=== PATIENT | male | born 1955 | race Caucasian/White ===

== ENCOUNTER 2017-11-07 06:53 | Outpatient (CLI) | payer BC | END 2017-11-07 06:54 | disposition home or self-care (01) | LOC: BICULT 06:53 | PROVIDERS: ATTEND Internal Medicine Gastroenterology | DX: Z12.11 Encounter for screening for malignant neoplasm of colon (principal); B18.2 Chronic viral hepatitis C; K74.60 Unspecified cirrhosis of liver; R16.0 Hepatomegaly, not elsewhere classified; I81 Portal vein thrombosis; I82.0 Budd-Chiari syndrome | CPT/HCPCS: 76705 ==

== ENCOUNTER 2017-11-15 10:13 | Outpatient (CLI) | payer BC, OTHER ==
[2017-11-15] MEDS ORDERED: ISOVUE-370 76%-LOCM 1 ML ONE (11:12)
== END 2017-11-15 10:14 | disposition home or self-care (01) ==
LOC: BICCT 10:13
PROVIDERS: ATTEND Specialist
DX: R16.2 Hepatomegaly with splenomegaly, not elsewhere classified (principal)
CPT/HCPCS: 74170; 82565

== ENCOUNTER 2018-02-27 11:16 | Outpatient (CLI) | payer BC, OTHER ==
[2018-02-27 11:46] LABS: #Basophils 0.1 thou/uL (0.0-0.2); #Eosinphils 0.1 thou/uL (0.0-0.7); #Lymphocytes 1.2 thou/uL (1.20-3.40); #Monocytes 0.4 thou/uL (0.11-0.59); #Neutrophils 2.5 thou/uL (1.40-6.50); %Basophils 1.6 % (0.0-1.0); %Eosinophils 2.9 % (0.0-10.0); %Lymphocytes 27.6 % (21.0-51.0); %Monocytes 9.6 % (0.0-10.0); %Neutrophils 58.3 % (42.0-75.0); Hemoglobin 11.9 g/dL (14.0-18.0); Mean Corpuscular HGB CONC 32.3 g/dL (32.0-36.0); Mean Corpuscular Hemoglobin 30.6 pg (27.0-31.0); Mean Corpuscular Volume 94.9 fL (78.0-98.0); Mean Platelet Volume 8.2 fL (7.4-10.4); Platelet Count 199 thou/uL (130-400); RBC Distribution Width 14.4 % (11.5-14.5); Red Blood Cell (RBC) Count 3.87 mill/uL (4.70-6.10); White Blood Cell (WBC) Count 4.3 thou/uL (4.8-10.8)
[2018-02-27 12:03] LABS: Anion Gap 11 mmol/L (10-20); BUN (Urea Nitrogen) 13 mg/dL (8.4-25.7); Calc. Creatinine Clearance 0 mL/min (70-130); Calcium 8.8 mg/dL (7.8-10.44); Carbon Dioxide 29 mmol/L (23-31); Chloride 98 mmol/L (98-107); Estimated GFR-MDRD 70; Glucose 88 mg/dL (80-115); Potassium 4.3 mmol/L (3.5-5.1); Sodium 134 mmol/L (136-145)
--- NOTE | 2018-02-27 15:02 | EKG ---
Test Reason : Blood Pressure : / mmHG Vent. Rate : 080 BPM Atrial Rate : 080 BPM P-R Int : 190 ms QRS Dur : 082 ms QT Int : 360 ms P-R-T Axes : 069 072 050 degrees QTc Int : 415 ms Normal sinus rhythm Cannot rule out Anterior infarct , age undetermined Abnormal ECG When compared with ECG of 22-JUN-2015 10:56, Minimal criteria for Anterior infarct are now Present Confirmed by DR. Octavio LEMUS ([id number]) on 02/27/2018 3:02:27 PM Referred By: GUERRERO Confirmed By:DR. Octavio LEMUS
== END 2018-02-27 11:17 | disposition home or self-care (01) ==
LOC: LABBT 11:16
PROVIDERS: ATTEND Specialist
DX: Z01.818 Encounter for other preprocedural examination (principal); K40.20 Bilateral inguinal hernia, without obstruction or gangrene, not specified as recurrent
CPT/HCPCS: 80048; 85025; 93005; 93010

== ENCOUNTER 2018-03-06 10:51 | Day surgery (SDC) | payer BC, OTHER ==
[2018-02-27 11:30] VITALS: BMI 27.1
[2018-03-06] MEDS ORDERED: CEFAZOLIN 2 GM/50 ML BAG ONE (12:05)
[2018-03-06] MEDS ORDERED: Ketorolac Tromethamine 30 MG/ML VIAL ONE (12:05)
[2018-03-06] MEDS ORDERED: Bupivacaine/Epinephrine 0.25% 30 ML VIAL ONE (13:09)
[2018-03-06] MEDS ORDERED: Fentanyl 100 MCG/2 ML VIAL ONE (13:13)
[2018-03-06] MEDS ORDERED: Albumin 5% 500 ML ONE (13:31)
[2018-03-06] MEDS ORDERED: Lidocaine 1% PF 5 ML VIAL ONE (14:38)
[2018-03-06] MEDS ORDERED: PHENYLEPHRINE-NS 100 MCG/ML 10 ML SYRINGE ONE (14:38)
[2018-03-06] MEDS ORDERED: PROPOFOL 200 MG/20 ML VIAL ONE (14:38)
[2018-03-06] MEDS ORDERED: Succinylcholine Chloride 20 MG/ML 10 ml SYRINGE FS ONE (14:38)
[2018-03-06] MEDS ORDERED: Dexamethasone 20 MG/5 ML VIAL ONE (14:38)
[2018-03-06] MEDS ORDERED: Ondansetron PF 4 MG/2 ML Vial ONE (14:38)
[2018-03-06] MEDS ORDERED: ePHEDrine/0.9% NaCl/PF SYRINGE 50 mg/10 ml ONE (14:38)
[2018-03-06 16:13] LABS: INR-International Normal Ratio 1.1; PTT 33.7 SEC (22.9-36.1); Prothrombin Time 14.6 SEC (12.0-14.7)
--- NOTE | 2018-03-07 12:55 | OP ---
DATE OF PROCEDURE: 03/06/2018 PREOPERATIVE DIAGNOSES: Bilateral inguinal hernia, history of cirrhosis with massive hepatomegaly. POSTOPERATIVE DIAGNOSES: Bilateral inguinal hernia, history of cirrhosis with massive hepatomegaly. PROCEDURE PERFORMED: Open bilateral inguinal hernia repair with mesh using a mesh patch and plug. SURGEON: Sunil Cervantes M.D. ANESTHESIA: General endotracheal. INDICATIONS: The patient is a 62-year-old white male. He presented with a significantly enlarging r ight inguinal hernia. On examination, he also had evidence of a left inguinal hernia repaired. He h ad significant hepatomegaly palpable well below his costal margin and for this reason, I recommended proceeding with an open rather than a laparoscopic hernia repair. He has some degree of ascites, but this is not felt to be a significant volume related problem. DESCRIPTION OF PROCEDURE: Informed consent was obtained. The patient was taken to the operating franny m where general endotracheal anesthesia was obtained with the patient in supine position. Bilateral inguinal area was trimmed of hair, prepped with ChloraPrep, and draped in sterile fashion. Local ane sthetic was infiltrated using 0.25% Marcaine with epinephrine. Attention was first turned to the rig ht side. An oblique right inguinal incision was created and dissection was carried through skin and subcutaneous tissue. The fascia was identified and incised parallel to its fibers so as to open the external ring. Careful dissection was carried out to dissect the spermatic cord and controlled this with a Tyrone drain. Dissection within the cord revealed a significant hernia sac. This does have some fluid within it. I carefully dissected this from the remaining cord structures. The cord struc tures had a general edematous appearance in texture. Meticulous hemostasis was maintained during the dissection. The sac was dissected back to its opening at the internal ring. A 2-0 Vicryl suture wa s used to fix a large mesh plug to the apex of the hernia sac and the complex was inverted in the pre peritoneal space. The mesh plug was secured to surrounding fascial structures with 3 interrupted sut ures of 2-0 Vicryl. A mesh patch was obtained and trimmed to appropriate size, and placed within the floor of the inguinal canal. It was secured there with several interrupted sutures of 2-0 Vicryl. The fascia was then closed with 3-0 Vicryl and the remainder of the wound closed in layers with 3-0 a nd 4-0 Monocryl. Dermabond was placed externally. Attention was turned to the left side. A mirror image incision and dissection was carried out. Ther e was a very large cord lipoma on the left. There have been a small cord lipoma on the right that maier d been removed, but the cord lipoma on the left was a fairly big. This was dissected back to its ope vadim at the internal ring and transected and removed. There was an indirect hernia sac, but this is substantially smaller than on the right. This was repaired in an identical fashion except using a me dium size mesh plug rather than a large mesh plug. The wound was clean and closed in a similar fashi on. Local anesthetic was infiltrated in each side during the course of closure and Dermabond was titus leticia externally. There were no complications. Patient tolerated the procedure well and was taken to recovery room in stable condition.
== END 2018-03-06 17:45 | disposition home or self-care (01) ==
LOC: SDC 10:51
PROVIDERS: ATTEND Specialist
PROC: 0YUA0JZ Supplement Bilateral Inguinal Region with Synthetic Substitute, Open Approach (ICD-10-PCS; principal; 2018-03-06)
DX: K40.20 Bilateral inguinal hernia, without obstruction or gangrene, not specified as recurrent (principal); K74.60 Unspecified cirrhosis of liver; Z79.899 Other long term (current) drug therapy
CPT/HCPCS: 85610; 85730; C1781; J0131; J1100; J1885; J2001; J2405; J2704; J3010; P9045

== ENCOUNTER 2018-03-21 11:10 | Outpatient (CLI) | payer BC, OTHER ==
[2018-03-21 12:13] LABS: #Basophils 0.1 thou/uL (0.0-0.2); #Eosinphils 0.1 thou/uL (0.0-0.7); #Monocytes 0.4 thou/uL (0.11-0.59); #Neutrophils 3.5 thou/uL (1.40-6.50); %Basophils 1.2 % (0.0-1.0); %Eosinophils 2.7 % (0.0-10.0); %Lymphocytes 19.6 % (21.0-51.0); %Monocytes 7.2 % (0.0-10.0); %Neutrophils 69.3 % (42.0-75.0); Hemoglobin 10.8 g/dL (14.0-18.0); Mean Corpuscular HGB CONC 31.7 g/dL (32.0-36.0); Mean Corpuscular Hemoglobin 29.8 pg (27.0-31.0); Mean Corpuscular Volume 94.3 fL (78.0-98.0); Mean Platelet Volume 7.7 fL (7.4-10.4); Platelet Count 283 thou/uL (130-400); RBC Distribution Width 15.3 % (11.5-14.5); Red Blood Cell (RBC) Count 3.63 mill/uL (4.70-6.10)
[2018-03-21 12:31] LABS: ALT (SGPT) 60 U/L (8-55); AST (SGOT) 99 U/L (5-34); Albumin 3.4 g/dL (3.4-4.8); Alkaline Phosphatase 714 U/L (40-150); Anion Gap 11 mmol/L (10-20); BUN (Urea Nitrogen) 14 mg/dL (8.4-25.7); Bilirubin, Total 0.6 mg/dL (0.2-1.2); Calc. Creatinine Clearance 0 mL/min (70-130); Carbon Dioxide 26 mmol/L (23-31); Chloride 100 mmol/L (98-107); Estimated GFR-MDRD 72; Globulin 4.1 g/dL (2.4-3.5); Glucose 106 mg/dL (80-115); Potassium 4.4 mmol/L (3.5-5.1); Protein, Total 7.5 g/dL (5.8-8.1); Sodium 133 mmol/L (136-145)
== END 2018-03-21 11:11 | disposition home or self-care (01) ==
LOC: LABBT 11:10
PROVIDERS: ATTEND Specialist
DX: Z01.812 Encounter for preprocedural laboratory examination (principal); K43.9 Ventral hernia without obstruction or gangrene
CPT/HCPCS: 80053; 85025

== ENCOUNTER 2018-03-27 05:57 | Day surgery (SDC) | payer BC, OTHER ==
[2018-03-21 11:19] VITALS: BMI 27.1
[2018-03-27] MEDS ORDERED: CEFAZOLIN 2 GM/50 ML BAG ONE (06:11)
[2018-03-27] MEDS ORDERED: Ketorolac Tromethamine 30 MG/ML VIAL ONE (06:12)
[2018-03-27] MEDS ORDERED: Fentanyl 100 MCG/2 ML VIAL ONE ×2 (06:37→07:22)
[2018-03-27] MEDS ORDERED: Bupivacaine/Epinephrine 0.25% 30 ML VIAL ONE (06:54)
[2018-03-27] MEDS ORDERED: HYDROcodone/Acetaminophen 5/325 mg Tablet ONE (10:03)
--- NOTE | 2018-03-27 17:21 | OP ---
DATE OF PROCEDURE: 03/27/2018 PREOPERATIVE DIAGNOSIS: Ventral hernia. POSTOPERATIVE DIAGNOSIS: Ventral hernia. PROCEDURE PERFORMED: Repair of ventral abdominal hernia with mesh using 4.3-cm Ventralex mesh patch. ANESTHESIA: General endotracheal. INDICATIONS: The patient is a 62-year-old cirrhotic white male. He recently underwent bilateral inguinal hernia repair. He has developed an enlarging epigastric mass with obvious hernia. He was taken to the operating room at this time for repair. DESCRIPTION OF OPERATION: Informed consent was obtained. The patient was taken to the operating room, where general anesthesia was obtained with the patient in supine position. Abdomen was prepped with ChloraPrep and draped in sterile fashion. Local anesthetic was infiltrated using 0.25% Marcaine with epinephrine. A vertical incision was created over the hernia that was marked in the preoperative area. Dissection was carried down to the obvious hernia. This was dissected circumferentially back to its base. The defect was about 1 cm in diameter. The hernia attachments were dissected circumferentially and the contents were able to be reduced intraabdominal. Blunt dissection was carried out to mobilize the preperitoneal space. A 4.3-cm Ventralex mesh patch was obtained and passed in the preperitoneal space. The tails were pulled snugly against the anterior abdominal wall. The tails were secured to the anterior fascia using 2 interrupted sutures of 0 Prolene superior and inferior. The lateral aspects were then closed with 2 additional sutures of 0 Prolene, obtaining bites of the anterior leaflet of the mesh patch. Additional local anesthetic was infiltrated. The deep layer was closed in layers with 3-0 Vicryl, so as to obliterate the space. The skin edges were approximated with 4-0 Monocryl subcuticular suture. Dermabond was placed externally. There were no complications. The patient tolerated the procedure well and was taken to recovery room in stable condition. Of note, care was taken to avoid entry into the peritoneal cavity. There was no ascitic fluid that was expressed at any point during the operation. Job ID: [id number]
== END 2018-03-27 10:18 | disposition home or self-care (01) ==
LOC: SDC 05:57
PROVIDERS: ATTEND Specialist
PROC: 0WUF0JZ Supplement Abdominal Wall with Synthetic Substitute, Open Approach (ICD-10-PCS; principal; 2018-03-27)
DX: K43.9 Ventral hernia without obstruction or gangrene (principal); M19.90 Unspecified osteoarthritis, unspecified site; K74.60 Unspecified cirrhosis of liver; F17.210 Nicotine dependence, cigarettes, uncomplicated; F10.20 Alcohol dependence, uncomplicated; Z79.899 Other long term (current) drug therapy; Z98.890 Other specified postprocedural states
CPT/HCPCS: J0131; J1885; J3010

== ENCOUNTER 2018-04-09 12:47 | Inpatient (IN) | payer BC, OTHER ==
[2018-04-09 13:13] LABS: #Basophils 0.1 thou/uL (0.0-0.2); #Eosinphils 0.1 thou/uL (0.0-0.7); #Lymphocytes 1.7 thou/uL (1.20-3.40); #Monocytes 1.1 thou/uL (0.11-0.59); #Neutrophils 11.6 thou/uL (1.40-6.50); %Basophils 0.7 % (0.0-1.0); %Eosinophils 0.5 % (0.0-10.0); %Lymphocytes 11.6 % (21.0-51.0); %Monocytes 7.6 % (0.0-10.0); %Neutrophils 79.6 % (42.0-75.0); Hemoglobin 7.4 g/dL (14.0-18.0); Mean Corpuscular HGB CONC 32.9 g/dL (32.0-36.0); Mean Corpuscular Hemoglobin 30.9 pg (27.0-31.0); Mean Corpuscular Volume 93.8 fL (78.0-98.0); Mean Platelet Volume 7.9 fL (7.4-10.4); Platelet Count 549 thou/uL (130-400); White Blood Cell (WBC) Count 14.5 thou/uL (4.8-10.8)
[2018-04-09 13:22] LABS: INR-International Normal Ratio 1.1; PTT 32.8 SEC (22.9-36.1); Prothrombin Time 13.9 SEC (12.0-14.7)
[2018-04-09] MEDS ORDERED: Pantoprazole 40 MG VIAL ONE (13:36)
[2018-04-09 13:38] LABS: ALT (SGPT) 166 U/L (8-55); AST (SGOT) 213 U/L (5-34); Albumin 3.2 g/dL (3.4-4.8); Alkaline Phosphatase 642 U/L (40-150); BUN (Urea Nitrogen) 74 mg/dL (8.4-25.7); Bilirubin, Total 0.5 mg/dL (0.2-1.2); Calc. Creatinine Clearance 0 mL/min (70-130); Carbon Dioxide 20 mmol/L (23-31); Chloride 100 mmol/L (98-107); Estimated GFR-MDRD 66; Globulin 3.7 g/dL (2.4-3.5); Glucose 157 mg/dL (80-115); Lipase 16 U/L (8-78); Potassium 5.9 mmol/L (3.5-5.1); Protein, Total 6.9 g/dL (5.8-8.1); Sodium 131 mmol/L (136-145)
[2018-04-09 13:42] LABS: Anion Gap 17 mmol/L (10-20)
[2018-04-09] MEDS ORDERED: Pantoprazole 80 MG in Sodium Chloride 0.9% 100 ML IVPB SCH (13:45)
[2018-04-09] MEDS ORDERED: Ondansetron PF 4 MG/2 ML Vial ONE (14:16)
[2018-04-09] MEDS ORDERED: Morphine 4 MG/ML VIAL ONE (14:16)
[2018-04-09] MEDS ORDERED: ISOVUE-370 76%-LOCM 1 ML ONE (15:53)
[2018-04-09] MEDS ORDERED: Iopamidol 370 76% 50 ML VIAL FS ONE (15:53)
[2018-04-09 16:33] LABS: Bilirubin Negative (Negative); Blood, Urine Negative (Negative); Clarity CLEAR (Clear); Glucose, Urine (Dipstick) Negative (Negative); Leukocyte Negative (Negative); Nitrite Negative (Negative); Protein, Urine (Dipstick) Negative (Neg-Trace); Specific Gravity, Urine 1.034 (1.002-1.036); Urobilinogen 0.2 mg/dL (0.2-1.0); pH, Urine 5.5 (5.0-9.0)
--- NOTE | 2018-04-09 16:53 | CT ---
CT ABDOMEN AND PELVIS WITH IV AND ORAL CONTRAST: History: Recent surgery, abdominal pain, rectal bleeding, hepatitis C, cirrhosis. FINDINGS: Comparison made with exam of 12-05-17. The AP diameter of left nodule is stable. Changes of cirrhosis of the liver are again seen. Numerous low density masses are seen in the liver, the largest measuring about 9.5 x 5 cm in the inferior aspe ct of the right lobe. There is free fluid in the abdomen consistent with mild ascites. The spleen is enlarged measuring 14.5 cm in length. Enlarged portahepatis lymph node is noted. The pancreas, adrena l glands, and kidneys are unremarkable. No free air is seen. There are vascular calcifications withou t evidence of aneurysmal dilatation of the abdominal aorta. The small bowel loops are not abnormally dilated. There is sigmoid diverticulosis. There is thickening of the wall of the sigmoid colon. There are degenerative changes of the spine. There are vascular calcifications without evidence of aneurys m. Gallbladder is again seen. IMPRESSION: 1. Cirrhosis of the liver with new masses, suspicious for hepatocellular carcinoma. Correlation with serum AFP level is recommended. 2. Sigmoid diverticulosis with diverticulitis. Underlying mass cannot be excluded. 3. Colonoscopy would be helpful. 4. Mild ascites. 5. Splenomegaly. POS: [facility]
[2018-04-09] MEDS ORDERED: metroNIDAZOLE 500 MG/100 ML BAG ONE (18:43)
[2018-04-09] MEDS ORDERED: Octreotide Acetate 100 MCG/ML VIAL SLOW IVP SCH (20:15)
[2018-04-09] MEDS ORDERED: Octreotide Acetate 1,250 MCG in Sodium Chloride 0.9% 250 ML 250 ML IVPB SCH (20:15)
[2018-04-09 20:26] LABS: Hemoglobin 7.8 g/dL (14.0-18.0)
[2018-04-09] MEDS: Nicotine 14 MG PATCH TOP SCH (20:37)
[2018-04-09] MEDS: Sodium Chloride 0.9% 1,000 ML IV SCH (20:41)
--- NOTE | 2018-04-09 21:08 | CON ---
DATE OF CONSULTATION: REASON FOR CONSULT: Hematemesis. HISTORY OF PRESENT ILLNESS: Mr. Carmen is a 62-year-old male who has been seen in our office intermittently for hepatitis C and cirrhosis. Earlier this fall in January, he was treated for hepatitis C. He reports that his levels were negative at the end of treatment. He has not been back since. At that time, he was evaluated with ultrasound, AFP for hepatoma screening. On ultrasound, there was initially concern for possible liver mass. However, a CT scan, three phase after that showed none and his AFP was 10. He was scheduled to have an MRI upcoming to follow up on that on the of this month for a 4-month followup. His significant other called me this morning noting since the , he has been throwing up coffee-ground materials and having black stools. She thought maybe it would go away and did not come in, but he has gained weight, so they called and I instructed them to come to the emergency room today. In the emergency room, he was evaluated, reported as afebrile, stable vital signs, looked pale. He had labs performed, which showed hemoglobin of 7.4 and a white count of 14.5, platelets were 549. INR is 1.1. Liver function tests note for an AST and ALT of 213 and 166 and alkaline phosphatase of 642, potassium is 5.9, sodium is 131, BUN and creatinine were 74 and 1.12. He was transfused 2 units of blood and given Protonix. He had a CT with contrast performed with oral and IV contrast that revealed extension of liver masses suspicious for hepatocellular carcinoma. One mass replacing the entire right lobe, which is down almost to his iliac crest on imaging. He had diverticulosis in the sigmoid. There was some thickening of the wall of the sigmoid, but no overt diverticulitis or mass seen. Splenomegaly was present. The patient is being admitted to the hospital by his primary doctor, Dr. Rowe. Apparently recently, he was sent to see Dr. Cervantes for inguinal hernias and a midline hernia and these were repaired. Initially, the inguinal hernia was repaired. However, he had bleeding from his nose at that time and the surgery was stopped. On followup, he was noted to have diastasis recti and midline hernia and a second surgery on 03/27 for epigastric mass with hernia. The hernia was repaired. The patient notes he no longer drinks alcohol. He has not been taking NSAIDs. He takes no blood thinners. PAST MEDICAL HISTORY: 1. Hepatitis C, treated. The patient states this has been cleared, although maybe there is end of therapy, treatment was negative at 6 months and still pending. 2. Cirrhosis. 3. History of alcohol abuse, but he does not drink now for one month. 4. Chronic low back pain. 5. Hypothyroidism. PAST SURGICAL HISTORY: 1. Salivary gland removed. 2. He recently had an inguinal hernia repair earlier this month and then a midline hernia repair. 3. He has had no previous EGD and colonoscopy. They were ordered in our office in 2017. 4. Umbilical hernia repair in 2005. FAMILY HISTORY: Negative for colorectal cancer, liver tumors or liver disease. ALLERGIES: NONE KNOWN. MEDICATIONS: Allopurinol, buprenorphine, Suboxone, Epclusa, which he finished for hepatitis C, furosemide, lactulose, levothyroxine, and spironolactone. PRESENT MEDICATIONS: The patient received IV Protonix in the ER and IV fluids. REVIEW OF SYSTEMS: The patient denies any dysphagia or odynophagia. States for months now, he has been vomiting intermittently mucoid material, but only in the past three days, he has noted black emesis and black stools. He has lost weight from about 280 pounds to 180 pounds he reports. He denies any chest pain or shortness of breath, nausea, rashes, myalgia, arthralgias or confusion. He does take lactulose for constipation. PHYSICAL EXAMINATION: VITAL SIGNS: The patient is afebrile. Pulse is anywhere from the high 80s to lower 100s. It is calmed since resuscitation. Blood pressure is 90s to 110s over 50s to 70s. GENERAL: He is nonicteric. LUNGS: He has muscle wasting. He has no evidence of supraclavicular adenopathy. Lungs are clear. HEART: Regular rhythm. ABDOMEN: Distended. He has tender hepatomegaly on the right side. His liver is almost down to his iliac crest. The liver is palpable in the midline as well under the hernia repair in the epigastric area. EXTREMITIES: Reveal some edema. There is no asterixis. SKIN: No lesions. IMAGING AND LABORATORY STUDIES: As per HPI. CT scan films reviewed by myself. There is massive liver lesion, hypoechoic in the right lobe replacing most of the right lobe inferior aspect. It is most prominent. Liver crosses the midline. Upper abdomen nodularity, bulging, pushes the abdominal wall out on the right side. No overt varices noted on his imaging, although there seems slightly prominent veins. There is a slightly enlarged spleen. ASSESSMENT: 1. Hematemesis. This was coffee-ground and started with association with melena about 3 days ago after he had been vomiting for several weeks. Today, he vomited twice this morning and that is what prompted to come in. He has only had one bowel movement today. He has had no vomiting or bowel movement since his arrival according to him and the nurses taking care of him. He has received Protonix IV. The differential diagnosis includes Anastacia-Murrell tear, ulcer disease, varices are less likely with the high platelet count, but this may be artifactual and related to his liver mass. He needs an upper endoscopy. However, he is just drank oral contrast for a CAT scan and that is not attainable right now as he is hemodynamically stable without further vomiting of blood. I think we can hold off on that until tomorrow. He does not have a coagulopathy. 2. Liver mass. His AFP has been normal as recently as November, it was 10 and it has been normal in the past. At this facility, it was 5.2 in 12/2016. The appearance is concerning for hepatoma and despite a normal AFP, it is most likely hepatoma. Differential diagnosis would include adenocarcinoma metastatic disease. RECOMMENDATIONS: 1. IV antibiotics for GI bleed in the setting of cirrhosis. Prophylactic. This is indicated standard of care. 2. I will go ahead and start octreotide on this patient, even though he does not have a low platelet count. He may have a reactive thrombocytosis to his tumor and he had significant cirrhosis and splenomegaly. 3. Continue PPIs. 4. Type and screen. 5. N.p.o. after midnight for EGD tomorrow. Job ID: [id number]
[2018-04-09] MEDS ORDERED: Fentanyl 100 MCG/2 ML VIAL SLOW IVP PRN (21:50)
[2018-04-09] MEDS ORDERED: metroNIDAZOLE 500 MG in Premix Bag 1 BAG IVPB SCH (22:00)
[2018-04-09] MEDS: Acetaminophen/Codeine 30-300mg Tablet PO PRN (22:43)
[2018-04-10] MEDS ORDERED: Pantoprazole 80 MG in Sodium Chloride 0.9% 100 ML IVPB SCH (01:00)
[2018-04-10] MEDS ORDERED: metroNIDAZOLE 500 MG in Premix Bag 1 BAG IVPB SCH ×2 (04:00→10:00)
[2018-04-10] MEDS: Sodium Chloride 0.9% 1,000 ML IV SCH ×3 (06:54→19:19)
[2018-04-10 07:40] LABS: Anion Gap 13 mmol/L (10-20); BUN (Urea Nitrogen) 60 mg/dL (8.4-25.7); Calc. Creatinine Clearance 77 mL/min (70-130); Calcium 8.3 mg/dL (7.8-10.44); Carbon Dioxide 21 mmol/L (23-31); Chloride 102 mmol/L (98-107); Estimated GFR-MDRD 60; Glucose 153 mg/dL (80-115); Magnesium 2.1 mg/dL (1.6-2.6); Phosphorus 4.6 mg/dL (2.3-4.7); Potassium 6.3 mmol/L (3.5-5.1); Sodium 130 mmol/L (136-145)
[2018-04-10 08:03] LABS: #Basophils 0.1 thou/uL (0.0-0.2); #Eosinphils 0.1 thou/uL (0.0-0.7); #Lymphocytes 1.5 thou/uL (1.20-3.40); #Monocytes 1.5 thou/uL (0.11-0.59); #Neutrophils 9.3 thou/uL (1.40-6.50); %Basophils 0.4 % (0.0-1.0); %Lymphocytes 11.7 % (21.0-51.0); %Monocytes 11.9 % (0.0-10.0); %Neutrophils 75.1 % (42.0-75.0); Hemoglobin 7.4 g/dL (14.0-18.0); Mean Corpuscular HGB CONC 33.7 g/dL (32.0-36.0); Mean Platelet Volume 7.7 fL (7.4-10.4); Platelet Count 310 thou/uL (130-400); RBC Distribution Width 14.8 % (11.5-14.5); Red Blood Cell (RBC) Count 2.39 mill/uL (4.70-6.10); White Blood Cell (WBC) Count 12.4 thou/uL (4.8-10.8)
[2018-04-10] MEDS ORDERED: Promethazine HCl 25 MG/ML VIAL SLOW IVP PRN ×2 (10:08→12:45)
[2018-04-10] MEDS ORDERED: Promethazine HCl 25 MG/ML VIAL IM PRN (10:08)
[2018-04-10] MEDS ORDERED: Ondansetron HCl/PF 4 MG/2 ML Vial IVP PRN (10:08)
[2018-04-10] MEDS ORDERED: Pantoprazole 80 MG, Admixture Fee 1 EACH in Sodium Chloride 0.9% 100 ML IVP SCH (10:45)
[2018-04-10] MEDS ORDERED: Furosemide 20 MG/2 ML VIAL SLOW IVP SCH (11:00)
--- NOTE | 2018-04-10 11:18 | HP ---
CHIEF COMPLAINT: GI bleed. HISTORY OF PRESENT ILLNESS: The patient is a 62-year-old male has been seen Dr. Rowe for several months for opioid dependence. He has been taken off all opioids and placed on Suboxone. He has history of hepatitis C, for which he underwent treatment and stated that during this time, he had been steadily losing weight. Over the last couple of weeks, he began to notice black tarry stools and when he finally started to have emesis on the second bout of bloody black tarry emesis, he came to the ER for further evaluation. There in the emergency room, his hemoglobin was noted to be 7.4 and hematocrit 22.6, at which time he was given some transfusions and on examination, his stool was found to be hemoccult positive. A CT scan was performed while in the emergency room, which also showed a large right lobe liver mass, suspicious for hepatocellular carcinoma; however, his AFPs have been normal. He has been followed by Dr. Fuchs in the GI clinic. He was scheduled to have an MRI upcoming to followup of that, and has come in now due to the emesis. Liver function tests were done. White count of 14.5 was noted and possible diverticulitis was found on the CT examination as well. He was began on IV Protonix and IV Flagyl and Cipro. Most recently, he had a bilateral inguinal hernia repair by Dr. Cervantes. This all went without incident, he did well. PAST MEDICAL HISTORY: As mentioned above. Hepatitis C, which has been treated and cleared; cirrhosis; severe history of alcohol abuse and opioid abuse. He also has had chronic low back pain and hypothyroidism. PAST SURGICAL HISTORY: Includes the aforementioned hernia repairs by Dr. Cervantes as well as a midline diastasis repair. He has had salivary gland removed. He has had no previous EGD and colonoscopy; although, they were ordered in 2017. He has had an umbilical hernia repair in 2005. FAMILY HISTORY: Negative for colon cancer, liver tumor, or liver disease. ALLERGIES: NO KNOWN DRUG ALLERGIES. MEDICATIONS: On admission: 1. Allopurinol 300 mg daily. 2. Suboxone film 11/16 one a day. 3. Epclusa, now concluded for his hepatitis C treatment. 4. Lasix 20 mg daily. 5. Lactulose daily. 6. Levothyroxine daily. 7. Spironolactone daily. SOCIAL HISTORY: He currently smokes and half a pack a day, has done so for many years. He drinks socially, but states his last drink was over a month ago. He currently has a roommate. REVIEW OF SYSTEMS: GENERAL: The patient has denied fever, chills, or malaise and has actually been feeling better after having hernia repair. HEENT: Denies any sores, lesions, or drainage from ears, nose, or throat. CHEST: Denies shortness of breath or coughing. CARDIOVASCULAR: Denies palpitations or chest pain. ABDOMEN: Denies constipation, but has had nausea and vomiting with black tarry stools. : Negative for dysuria or blood in his urine. MUSCULOSKELETAL: Denies any significant muscle aches or joint pain. SKIN: No new rashes or lesions. NEUROLOGIC: Denies any areas of anesthesia or paraesthesia. His mentation has been at baseline. PHYSICAL EXAMINATION: At the time of admission: VITAL SIGNS: Blood pressure 111/59, pulse 83, respirations 20, O2 sat 100% on room air. Pain scale at 7, this is chronic back pain, which he is in no acute distress and temperature 98.9. GENERAL: Well-developed, well-nourished male, alert and cooperative. HEENT: Normocephalic and atraumatic. Pupils are equal, round, and reactive to light. Extraocular muscles are intact. TMs, nares, and pharynx are clear. NECK: Trachea midline. Neck is supple. No masses. CHEST: Generally diminished breath sounds with no active wheezing, rales, or rhonchi. HEART: Regular rate and rhythm. No murmur. ABDOMEN: Very large liver down to the iliac crest on the right. No tenderness. Well-healed midline hernia scars. Hemoccult positive per ER physician. SKIN: Without acute rashes or lesions. : Deferred. EXTREMITIES: Without clubbing, cyanosis, or edema. NEUROLOGIC: Cranial nerves are intact. Gait and cerebral function intact. Sensory exam is intact. Mental status is at baseline. LABORATORY DATA: Lab work on admission showed WBCs 14.5, hemoglobin 7.4, hematocrit 22.6 with platelets of 549. Sodium 131, potassium 5.9, chloride 100, CO2 of 20, BUN 74, creatinine 1.12 with a GFR of 66, glucose of 157, calcium 8.9. AST elevated at 213, ALT elevated at 166, alkaline phos elevated at 642. Lipase 16, CEA at 4.99 - normal. UA is internally unremarkable. PT is 13.9, INR 1.1 with a PTT of 32.8. ASSESSMENT: 1. Gastrointestinal bleed, etiology probably esophageal varices. 2. Large liver mass. 3. Per CT, probable colon mass with acute diverticulitis. 4. History of opioid, alcohol, and nicotine abuse. 5. Hypothyroidism. 6. Chronic back pain is reason for opioid usage, but the patient does quite well without any of these, on Suboxone. 7. Hyperkalemia. PLAN: Plan is for EGD and colonoscopy. Continue IV Protonix. We will use Kayexalate to lower his potassium level and recheck that on serial exams. GI consultation is already in place and endoscopies are ready to be performed. Job ID: [id number]
[2018-04-10] MEDS ORDERED: Buprenorphine 8mg/Naloxone 2mg per 1 FILM SL SCH ×2 (11:45→17:30)
[2018-04-10 11:51] LABS: Hemoglobin 7.4 g/dL (14.0-18.0)
[2018-04-10] MEDS: Albuterol Sulfate 2.5 mg/3 ml Neb NEB SCH ×3 (12:08→18:52)
[2018-04-10] MEDS: metroNIDAZOLE 500 MG in Premix Bag 1 BAG IVPB SCH ×2 (12:30→20:50)
[2018-04-10] MEDS: Acetaminophen/Codeine 30-300mg Tablet PO PRN ×3 (12:59→20:49)
[2018-04-10] MEDS: Dextrose 5 % And 0.9 % NaCl 1,000 ML IV SCH (13:02)
[2018-04-10] MEDS: Ondansetron PF 4 MG/2 ML Vial IVP PRN ×3 (13:07→20:53)
[2018-04-10] MEDS ORDERED: GoLYTELY 4,000 ml Bottle PO SCH (18:00)
[2018-04-10] MEDS ORDERED: Lidocaine 1% PF 5 ML VIAL ONE (18:03)
[2018-04-10] MEDS ORDERED: PROPOFOL 200 MG/20 ML VIAL ONE (18:03)
[2018-04-10 20:32] LABS: Hemoglobin 6.6 g/dL (14.0-18.0)
[2018-04-10] MEDS: Pantoprazole 40 MG VIAL IVP SCH (20:48)
[2018-04-10] MEDS: Nicotine 14 MG PATCH TOP SCH (20:49)
--- NOTE | 2018-04-10 22:27 | OP ---
DATE OF PROCEDURE: 04/10/2018 PREPROCEDURE DIAGNOSES: 1. History of coffee-grounds emesis for several weeks with black stools for several weeks. No overt hematemesis or emesis of clot. 2. History of cirrhosis. POSTOPERATIVE DIAGNOSES: 1. Grade 2 varices with no red Hung sign or stigmata of bleeding. 2. Portal gastropathy. 3. No signs of Anastacia-Murrell tear. 4. Normal duodenum in third portion. RECOMMENDATIONS: 1. Beta-migue for primary prophylaxis of varices. No banding was performed as there was no stigmata of bleeding and the quality of bleeding was not that of variceal bleed. 2. Continue PPIs. 3. Colonoscopy tomorrow. ANESTHESIA: TIVA. PROCEDURE IN DETAIL: The patient was informed of the risks, benefits, possible complications of endoscopy including perforation, reaction to medication, and aspiration, and informed consent obtained. The patient was brought to endoscopy suite, where he was sedated in the gradual fashion. Once he was comfortable, a bite block was placed into his oropharynx. The endoscope was advanced to the esophagus, stomach, second, and third portion of the duodenum and the scope was slowly removed. In the esophagus, there was grade 2 varices with no stigmata of bleeding. Close inspection of the GE junction showed no evidence of Anastacia-Murrell tears. There were no thrombins, clots, or red hung signs in the varices. Retroflexed views in the stomach showed no evidence of gastric varices or active bleeding or stigmata of recent bleeding. There was some old food in the stomach, but no clots, ulcers, or lesions. There was mild grade 2 portal gastropathy. The duodenal bulb was normal. The second and third portions were normal. The scope was removed. The patient tolerated the procedure well with no complications. Job ID: [id number]
[2018-04-11] MEDS: Dextrose 5 % And 0.9 % NaCl 1,000 ML IV SCH ×4 (01:15→20:24)
[2018-04-11] MEDS: Acetaminophen/Codeine 30-300mg Tablet PO PRN ×4 (01:15→20:37)
[2018-04-11] MEDS: Ondansetron PF 4 MG/2 ML Vial IVP PRN ×4 (01:16→22:03)
[2018-04-11] MEDS: Buprenorphine 8mg/Naloxone 2mg per 1 FILM SL SCH ×2 (05:13→15:55)
[2018-04-11] MEDS: metroNIDAZOLE 500 MG in Premix Bag 1 BAG IVPB SCH ×3 (05:15→20:27)
[2018-04-11] MEDS: Levothyroxine Sodium 50 MCG TAB PO SCH (05:15)
[2018-04-11] MEDS: Albuterol Sulfate 2.5 mg/3 ml Neb NEB SCH ×4 (06:55→19:01)
[2018-04-11 07:23] LABS: #Eosinphils 0.1 thou/uL (0.0-0.7); #Lymphocytes 0.9 thou/uL (1.20-3.40); #Monocytes 1.4 thou/uL (0.11-0.59); #Neutrophils 8.6 thou/uL (1.40-6.50); %Basophils 0.1 % (0.0-1.0); %Eosinophils 0.7 % (0.0-10.0); %Lymphocytes 7.8 % (21.0-51.0); %Monocytes 12.4 % (0.0-10.0); Mean Corpuscular HGB CONC 33.2 g/dL (32.0-36.0); Mean Corpuscular Volume 93.1 fL (78.0-98.0); Mean Platelet Volume 7.3 fL (7.4-10.4); Platelet Count 200 thou/uL (130-400); White Blood Cell (WBC) Count 10.9 thou/uL (4.8-10.8)
[2018-04-11 07:30] LABS: Hemoglobin A1c 4.8 % (4.0-6.0)
[2018-04-11 07:44] LABS: ALT (SGPT) 952 U/L (8-55); AST (SGOT) 496 U/L (5-34); Albumin 2.6 g/dL (3.4-4.8); Alkaline Phosphatase 648 U/L (40-150); Anion Gap 13 mmol/L (10-20); BUN (Urea Nitrogen) 33 mg/dL (8.4-25.7); Calc. Creatinine Clearance 101 mL/min (70-130); Carbon Dioxide 22 mmol/L (23-31); Chloride 102 mmol/L (98-107); Estimated GFR-MDRD 83; Globulin 3.2 g/dL (2.4-3.5); Glucose 135 mg/dL (80-115); Potassium 4.7 mmol/L (3.5-5.1); Protein, Total 5.8 g/dL (5.8-8.1); Sodium 132 mmol/L (136-145)
[2018-04-11] MEDS: Pantoprazole 40 MG VIAL IVP SCH ×2 (08:07→20:28)
[2018-04-11] MEDS: Furosemide 20 MG/2 ML VIAL SLOW IVP SCH (08:08)
[2018-04-11] MEDS ORDERED: Nadolol 40 MG TAB PO SCH (09:00)
[2018-04-11 13:24] LABS: Hemoglobin 7.7 g/dL (14.0-18.0)
--- NOTE | 2018-04-11 13:56 | PRG ---
DATE OF SERVICE: 04/11/2018 SUBJECTIVE: Mr. Carmen had an EGD some varices, but no stigmata of bleeding. He has received 2 more units today for hemoglobin 6.6. Last night, his hemoglobin this morning was 8, white count is 10.9, platelet count is 200. He has not been able to drink his bowel prep. MEDICATIONS: 1. Tylenol No. 3. 2. Suboxone. 3. Cipro. 4. Levaquin. 5. Flagyl. 6. Nadolol. 7. Zofran. 8. Protonix. 9. IV fluids. PHYSICAL EXAMINATION: VITAL SIGNS: Temperature is 98 and blood pressure 87 to 90/63. LUNGS: Clear. HEART: Regular rate and rhythm. ABDOMEN: Protuberant with mass. EXTREMITIES: No clubbing, cyanosis, or edema. ASSESSMENT: 1. Large liver mass. AFP has been normal in the office. Here, CEA was normal. CA 99 is pending. 2. Anemia with melena. Negative esophagogastroduodenoscopy except for varices, nonbleeding. unable to do a prep. RECOMMENDATIONS: We will hold his nadolol secondary to his blood pressure. We will continue to monitor his hemoglobin and hematocrit. We will schedule for ultrasound-guided liver biopsy of large liver mass tomorrow. Job ID: [id number]
[2018-04-11 20:09] LABS: Hemoglobin 7.6 g/dL (14.0-18.0)
[2018-04-11] MEDS: Nicotine 14 MG PATCH TOP SCH (20:22)
[2018-04-12] MEDS: metroNIDAZOLE 500 MG in Premix Bag 1 BAG IVPB SCH ×2 (05:02→12:27)
[2018-04-12] MEDS: Levothyroxine Sodium 50 MCG TAB PO SCH (05:02)
[2018-04-12] MEDS: Dextrose 5 % And 0.9 % NaCl 1,000 ML IV SCH ×2 (05:03→08:01)
[2018-04-12] MEDS: Buprenorphine 8mg/Naloxone 2mg per 1 FILM SL SCH (05:09)
[2018-04-12] MEDS: Albuterol Sulfate 2.5 mg/3 ml Neb NEB SCH ×4 (06:34→18:16)
[2018-04-12] MEDS: Pantoprazole 40 MG VIAL IVP SCH ×2 (07:54→21:27)
[2018-04-12] MEDS: Acetaminophen/Codeine 30-300mg Tablet PO PRN (07:54)
[2018-04-12 07:55] LABS: #Lymphocytes 0.9 thou/uL (1.20-3.40); #Monocytes 1.7 thou/uL (0.11-0.59); %Basophils 0.1 % (0.0-1.0); %Eosinophils 0.3 % (0.0-10.0); %Lymphocytes 6.6 % (21.0-51.0); %Monocytes 12.2 % (0.0-10.0); %Neutrophils 80.8 % (42.0-75.0); Hemoglobin 7.3 g/dL (14.0-18.0); Mean Corpuscular HGB CONC 32.5 g/dL (32.0-36.0); Mean Corpuscular Hemoglobin 30.6 pg (27.0-31.0); Mean Corpuscular Volume 94.1 fL (78.0-98.0); Mean Platelet Volume 7.5 fL (7.4-10.4); Platelet Count 266 thou/uL (130-400); RBC Distribution Width 14.9 % (11.5-14.5); Red Blood Cell (RBC) Count 2.39 mill/uL (4.70-6.10); White Blood Cell (WBC) Count 13.7 thou/uL (4.8-10.8)
[2018-04-12] MEDS: Ondansetron PF 4 MG/2 ML Vial IVP PRN ×4 (07:55→21:42)
[2018-04-12] MEDS: Furosemide 20 MG/2 ML VIAL SLOW IVP SCH (08:00)
[2018-04-12 08:06] LABS: INR-International Normal Ratio 1.4; Prothrombin Time 17.1 SEC (12.0-14.7)
[2018-04-12] MEDS ORDERED: Midazolam HCl 2 mg/2 ml Vial ONE (08:19)
[2018-04-12] MEDS ORDERED: Fentanyl 100 MCG/2 ML VIAL ONE (08:20)
[2018-04-12] MEDS ORDERED: Sodium Bicarbonate 2.5 MEQ/5 ML VIAL ONE (08:20)
[2018-04-12 08:24] LABS: ALT (SGPT) 726 U/L (8-55); AST (SGOT) 299 U/L (5-34); Albumin 2.5 g/dL (3.4-4.8); Alkaline Phosphatase 576 U/L (40-150); Anion Gap 12 mmol/L (10-20); BUN (Urea Nitrogen) 32 mg/dL (8.4-25.7); Bilirubin, Total 0.9 mg/dL (0.2-1.2); Calc. Creatinine Clearance 67 mL/min (70-130); Calcium 7.9 mg/dL (7.8-10.44); Carbon Dioxide 22 mmol/L (23-31); Chloride 100 mmol/L (98-107); Estimated GFR-MDRD 51; Globulin 3.3 g/dL (2.4-3.5); Glucose 114 mg/dL (80-115); Potassium 4.1 mmol/L (3.5-5.1); Protein, Total 5.8 g/dL (5.8-8.1); Sodium 130 mmol/L (136-145)
--- NOTE | 2018-04-12 10:38 | ULT ---
ULTRASOUND GUIDED LIVER MASS BIOPSY: HISTORY: Liver mass, normal AFP. COMPARISON: CT abdomen and pelvis from 04/09/2018. FINDINGS: The patient was brought to the ultrasound suite. All questions were answered. Informed consent was obtained. A time out was performed. TECHNIQUE: Fentanyl 50 mcg and Versed 1 mg was administered via the supervising nurse. The patient's abdomen was prepped and draped in a normal sterile fashion. A small dermatotomy was ma de after adequate anesthesia with 3 mL of Lidocaine. Using a 17 gauge introducer and an 18 gauge needle, the left hepatic mass was accessed, and a total o f two 22 mm cores were obtained. The patient tolerated the procedure well without complication. Pat hology confirmed adequacy. IMPRESSION: Technically successful ultrasound guided liver mass biopsy. TOTAL SEDATION TIME: Thirty minutes. POS: [facility]
[2018-04-12] MEDS: HYDROcodone/Acetaminophen 5/325 mg Tablet PO PRN ×3 (12:13→21:39)
--- NOTE | 2018-04-12 16:39 | PRG ---
DATE OF SERVICE: SUBJECTIVE: Mr. Carmen is without complaints. His liver biopsy today. His stool is dark. OBJECTIVE: VITAL SIGNS: Temperature is 97.9, pulse 65, blood pressure 91/50. ABDOMEN: Protuberant and firm. Liver is tender. LABORATORY DATA: Labs today; white count 30.7, hemoglobin 7.3, and platelet count 266. Albumin was 1.4. BUN and creatinine were 32 and 1.4. AST, ALT, ALP are 299, 726, and 576. ASSESSMENT: 1. Admission with melena, received 2 units of blood on the and 2 at the night of the . His hemoglobin is virtually stable at 7.3 this morning. Esophagogastroduodenoscopy was nondiagnostic except for varices, nonbleeding. Colonoscopy was never performed due to the patient could not tolerate the prep. There were no signs of active hemorrhage now. 2. Liver mass, mass replacing the right lobe of the liver. AFP was 27.8. CA-99 was 40. CEA was 4.9. Statistically, this is most likely be a hepatoma. Biopsies are pending. Lymphoma would be a possibility as well. RECOMMENDATIONS: 1. Await biopsies. 2. Monitor H and H for signs of bleeding or hemoglobin drops below 7. We will transfuse. I think the metronidazole can be discontinued. There are no signs of diverticulitis on imaging studies. The pain is related to his massive liver tumor. We will continue his Protonix. We will follow along with you. Prognosis is very poor. Job ID: [id number]
[2018-04-12] MEDS: Nicotine 14 MG PATCH TOP SCH (21:27)
[2018-04-13] MEDS: Dextrose 5 % And 0.9 % NaCl 1,000 ML IV SCH ×2 (04:56→18:00)
[2018-04-13] MEDS: HYDROcodone/Acetaminophen 5/325 mg Tablet PO PRN ×3 (05:01→13:48)
[2018-04-13] MEDS: Levothyroxine Sodium 50 MCG TAB PO SCH (05:01)
[2018-04-13] MEDS: Ondansetron PF 4 MG/2 ML Vial IVP PRN ×3 (05:03→20:32)
[2018-04-13 06:29] LABS: #Eosinphils 0.1 thou/uL (0.0-0.7); #Lymphocytes 0.6 thou/uL (1.20-3.40); #Monocytes 1.1 thou/uL (0.11-0.59); #Neutrophils 7.4 thou/uL (1.40-6.50); %Basophils 0.3 % (0.0-1.0); %Eosinophils 0.6 % (0.0-10.0); %Monocytes 11.5 % (0.0-10.0); %Neutrophils 80.7 % (42.0-75.0); Hemoglobin 6.9 g/dL (14.0-18.0); Mean Corpuscular HGB CONC 32.8 g/dL (32.0-36.0); Mean Corpuscular Volume 94.6 fL (78.0-98.0); Mean Platelet Volume 7.5 fL (7.4-10.4); Platelet Count 243 thou/uL (130-400); RBC Distribution Width 14.5 % (11.5-14.5); Red Blood Cell (RBC) Count 2.23 mill/uL (4.70-6.10); White Blood Cell (WBC) Count 9.2 thou/uL (4.8-10.8)
[2018-04-13 06:54] LABS: Anion Gap 10 mmol/L (10-20); BUN (Urea Nitrogen) 28 mg/dL (8.4-25.7); Calc. Creatinine Clearance 79 mL/min (70-130); Calcium 7.5 mg/dL (7.8-10.44); Carbon Dioxide 23 mmol/L (23-31); Chloride 100 mmol/L (98-107); Estimated GFR-MDRD 63; Glucose 123 mg/dL (80-115); Potassium 3.7 mmol/L (3.5-5.1); Sodium 129 mmol/L (136-145)
[2018-04-13] MEDS: Albuterol Sulfate 2.5 mg/3 ml Neb NEB SCH ×4 (07:20→18:53)
[2018-04-13] MEDS: Pantoprazole 40 MG VIAL IVP SCH ×2 (08:46→20:32)
[2018-04-13] MEDS: Furosemide 20 MG/2 ML VIAL SLOW IVP SCH (08:46)
[2018-04-13] MEDS: Acetaminophen/Codeine 30-300mg Tablet PO PRN (10:08)
--- NOTE | 2018-04-13 16:21 | PRG ---
DATE OF SERVICE: 04/13/2018 SUBJECTIVE: Talked with Pathology on Mr. Carmen's liver biopsy. The biopsy is positive for hepatocellular carcinoma. I have talked with Mr. Carmen and Dr. Rowe about this pathology results. RECOMMENDATIONS: 1. I think some significant thoughts to be given to Palliative Care, as this is a multifocal tumor that fills the right lobe of the liver. The largest individual size is 9 cm. This would make him not a candidate for liver transplantation. Local ablative therapy would not be an option, and chemotherapy offers very little, I think, we should get an Oncology consult, however. 2. With regard to his dropping hemoglobin and worsening abdominal pain, he needs a CAT scan to make sure that the liver is not bleeding from his liver biopsy. We knew into the biopsy, but without a definitive diagnosis and normal alpha fetoprotein, normal CEA, proceeding with that. 3. I will give him some morphine now for pain control. We will get a CAT scan to rule out bleeding liver from his biopsy. I have consulted Oncology. I talked to Dr. Rowe about his pain control and possible need for Palliative Care consult. He wants to wait until Oncology has talked to the patient, which is reasonable, and we will get serial H and H's and transfuse him one more unit of blood. Job ID: [id number]
--- NOTE | 2018-04-13 16:26 | PRG ---
DATE OF SERVICE: 04/13/2018 SUBJECTIVE: Mr. Carmen is resting in bed. He is in excruciating pain today. He asks for pain medication. Temperature is 98, pulse 67, blood pressure 101/61. He is cachectic. He has distended abdomen, tender liver, massively enlarged liver. LABORATORY STUDIES: Notable for white count of 9.2, hemoglobin 6.9, platelet count of 243. BUN of 28, creatinine of 1.18. INR was 1.4 yesterday. Liver biopsy is pending. He has received 1 unit of blood today. ASSESSMENT: Worsening pain excruciating. I have a long discussion with the patient and his family today. I think the pain is from his liver mass. Explained to him the size of his liver lesion and he would not be a candidate for liver transplantation if this is a hepatoma. With his severe liver disease, it would be even hard to treat him if it were adenocarcinoma or lymphoma because of his poor synthetic function with cirrhosis. The tumor largest size is 9.5 x 5 cm. He has enlarged patience hepatis lymph nodes as well. The tumor tends to replace most of the right lobe of the liver. RECOMMENDATIONS: At this time, I am going to call pathology and see if there is any final result on the pathology available. I am going to give him 2 mg of morphine to help with pain. Talked with him and his family about palliative care and they were instructed in that. primary physician to see if it okay we consult them. I gave him one more unit of blood as his hemoglobin seems to slowly drop. He had an EGD that showed no signs of bleeding. He was not able to drink a prep for a colonoscopy. Dr. De Paz is on-call over the weekend and will follow in my absence. Job ID: [id number]
[2018-04-13] MEDS: Morphine 4 MG/ML VIAL SLOW IVP PRN ×2 (16:33→20:32)
--- NOTE | 2018-04-13 19:25 | CT ---
CT ABDOMEN AND PELVIS 04/13/18 HISTORY: Worsening abdominal pain. Patient has history of biopsy of liver mass one day ago. COMPARISON: Postcontrast CT abdomen and pelvis on 04/09/18. FINDINGS: There are tiny bilateral pleural effusions present. The liver is again enlarged measuring 30 cm in craniocaudal dimensions. Nodular peripheral contour is again seen suggesting cirrhosis. There is large area of heterogeneity involving the majority of the right hepatic lobe as well as left hepatic lobe. Findings are worrisome for hepatocellular carcinoma. The spleen is increased in size in craniocaudal dimensions measuring 6.2 cm. The pancreas, bilateral adrenal glands, and kidneys demonstrate a grossly normal nonenhanced CT appea maurice. The urinary bladder is decompressed. There is colonic diverticulosis again present. There has been interval increase in intraperitoneal free fluid since the prior study. However, attenu ation coefficients obtained at multiple sites within the intraperitoneal free fluid demonstrates more simple appearing fluid as opposed to increased density as would be expected with fluid secondary to hemorrhage. No free intraperitoneal gas is identified. There is a gas density structure seen adjacent to the third portion of the duodenum. This has the appearance of a duodenum diverticulum although th is is not appreciated on the prior exam. This may just be related to prominent gaseous distention of the duodenum in this region. Vascular calcifications seen in the abdominal aorta and iliac arteries. Degenerative changes are seen in the spine. There is increased density material seen within the gallbladder lumen. This may be related to vj us excretion of contrast into the gallbladder secondary to contrasted study on 04/09/18. There is suggested thickening involving the stomach, but this is probably related to incomplete diste nsion. IMPRESSION: 1. Interval increase in intraperitoneal free fluid compared to prior exam on 04/09/18.The attenu ation coefficients obtained within the fluid at multiple sites demonstrates more simple appearing flu id as opposed to increased density fluid as would be expected with hemorrhage. 2. Tiny bilateral pleural effusions and atelectasis. 3. Hepatosplenomegaly with evidence of cirrhosis. 4. Infiltrative mass involving the majority of the liver worrisome for hepatocellular carcinoma. 5. Above findings were discussed with Dr. De Paz on 04/13/18 at 1703 hours. POS: [facility]
[2018-04-13] MEDS: Nicotine 14 MG PATCH TOP SCH (20:52)
[2018-04-13 22:00] LABS: Hemoglobin 9.6 g/dL (14.0-18.0)
[2018-04-14] MEDS: HYDROcodone/Acetaminophen 5/325 mg Tablet PO PRN (00:17)
[2018-04-14] MEDS: Morphine 4 MG/ML VIAL SLOW IVP PRN ×6 (01:50→20:59)
[2018-04-14] MEDS: Ondansetron PF 4 MG/2 ML Vial IVP PRN ×5 (01:59→18:29)
[2018-04-14] MEDS: Levothyroxine Sodium 50 MCG TAB PO SCH (06:29)
[2018-04-14] MEDS: Dextrose 5 % And 0.9 % NaCl 1,000 ML IV SCH ×2 (06:30→21:05)
[2018-04-14] MEDS: Albuterol Sulfate 2.5 mg/3 ml Neb NEB SCH ×4 (06:44→18:12)
[2018-04-14 08:06] LABS: #Eosinphils 0.1 thou/uL (0.0-0.7); #Lymphocytes 0.6 thou/uL (1.20-3.40); #Monocytes 0.9 thou/uL (0.11-0.59); #Neutrophils 6.9 thou/uL (1.40-6.50); %Basophils 0.1 % (0.0-1.0); %Eosinophils 0.7 % (0.0-10.0); %Lymphocytes 7.5 % (21.0-51.0); %Monocytes 10.8 % (0.0-10.0); %Neutrophils 80.9 % (42.0-75.0); Hemoglobin 9.6 g/dL (14.0-18.0); Hemoglobin 9.7 g/dL (14.0-18.0); Mean Corpuscular HGB CONC 32.1 g/dL (32.0-36.0); Mean Corpuscular Hemoglobin 30.2 pg (27.0-31.0); Mean Corpuscular Volume 94.1 fL (78.0-98.0); Mean Platelet Volume 7.4 fL (7.4-10.4); Platelet Count 276 thou/uL (130-400); RBC Distribution Width 15.4 % (11.5-14.5); Red Blood Cell (RBC) Count 3.17 mill/uL (4.70-6.10); White Blood Cell (WBC) Count 8.6 thou/uL (4.8-10.8)
[2018-04-14] MEDS: Pantoprazole 40 MG VIAL IVP SCH ×2 (08:11→20:57)
[2018-04-14] MEDS: Furosemide 20 MG/2 ML VIAL SLOW IVP SCH (08:13)
[2018-04-14 08:23] LABS: ALT (SGPT) 357 U/L (8-55); AST (SGOT) 102 U/L (5-34); Albumin 2.3 g/dL (3.4-4.8); Alkaline Phosphatase 506 U/L (40-150); Anion Gap 10 mmol/L (10-20); BUN (Urea Nitrogen) 21 mg/dL (8.4-25.7); Bilirubin, Total 0.8 mg/dL (0.2-1.2); Calc. Creatinine Clearance 100 mL/min (70-130); Calcium 7.8 mg/dL (7.8-10.44); Carbon Dioxide 21 mmol/L (23-31); Chloride 102 mmol/L (98-107); Estimated GFR-MDRD 82; Globulin 3.2 g/dL (2.4-3.5); Glucose 131 mg/dL (80-115); Potassium 3.8 mmol/L (3.5-5.1); Protein, Total 5.5 g/dL (5.8-8.1); Sodium 129 mmol/L (136-145)
[2018-04-14] MEDS ORDERED: fentaNYL 75 mcg/hour Patch TD SCH (11:00)
[2018-04-14 11:20] LABS: Hemoglobin 9.5 g/dL (14.0-18.0)
[2018-04-14] MEDS: Lorazepam 2 MG/ML VIAL SLOW IVP PRN (13:17)
[2018-04-14 16:05] LABS: Hemoglobin 9.2 g/dL (14.0-18.0)
[2018-04-14] MEDS ORDERED: Sodium Bicarbonate 2.5 MEQ/5 ML VIAL ONE (16:19)
--- NOTE | 2018-04-14 16:44 | PRG ---
DATE OF SERVICE: 04/14/2018 COVERING PHYSICIAN: Cross-coverage for Dr. Phill Fuchs. SUBJECTIVE: Mr. Christopher Carmen is an unfortunate 62-year-old male with liver cirrhosis, chronic hepatitis C, hepatoma, and ascites. The patient has extensive hepatoma and he is not a candidate for liver transplant. Also, his chemotherapy and radiation are not effective. The patient was seen by Dr. Fuchs and advised mostly symptomatic and have comfort measures preop. The patient was seen by Oncology, who would not recommend a specific therapy. The patient has increasing ascites. He feels very tight and uncomfortable and also having abdominal pain. He is on pain medication. There is no nausea and no vomiting. The patient is lying down flat with very difficulty breathing, but states his abdomen is very tight and he has a hard time breathing. PHYSICAL EXAMINATION: VITAL SIGNS: Temperature 97.8 degrees Fahrenheit, pulse 71, blood pressure 103/58. CARDIOVASCULAR: First and second heart sounds heard. LUNGS: Clear to auscultation. ABDOMEN: Distended and tight. Abdomen is nontender. LABORATORY DATA: From today, hemoglobin 9.5, which is same thing in the last 24 hours and hematocrit is 28.8. ASSESSMENT AND PLAN: The patient wants to have . The patient will have ultrasound-guided paracentesis later on today. Also recommend basically symptomatic and comfort measures. Job ID: [id number]
--- NOTE | 2018-04-14 17:19 | CON ---
DATE OF CONSULTATION: REASON FOR CONSULTATION: HCC. HISTORY OF PRESENT ILLNESS: A 62-year-old male with hepatitis C, alcohol, and opioid abuse, presenting to the hospital with nausea, vomiting, black tarry stools, and black tarry emesis. In the ER, the patient's hemoglobin was noted to be 7.4, and he was transfused packed red blood cells. CT scan in the emergency room showed a large right lobe liver mass suspicious for primary liver cancer and biopsy confirmed hepatocellular carcinoma. AFP was mildly elevated. The patient complains of 10/10 abdominal pain, mostly in his right upper quadrant, but spreading all over and this has been worsening over the last few months. He also notes approximately a 100-pound weight loss over the last year. He states his pain is not under control in the hospital. He was recently treated for hepatitis C and states that he was in remission and finished treatment a few months ago. The patient has drank alcohol mostly beers daily for most of his life and says he stopped drinking couple months ago. I was consulted to offer potential therapeutic options. REVIEW OF SYSTEMS: Ten-point review of systems negative except as per HPI. PAST MEDICAL HISTORY: Hepatitis C, alcohol abuse, cirrhosis, opioid abuse, hypothyroidism. PAST SURGICAL HISTORY: Hernia repairs, salivary gland removal, umbilical hernia repair in 2005. FAMILY HISTORY: Negative for cancer. ALLERGIES: NO KNOWN DRUG ALLERGIES. CURRENT MEDICATIONS: Reviewed. SOCIAL HISTORY: Currently 1-1/2-pack per day smoker. Drinking beers daily for most of his life. Last drank 1 to 2 months ago. PHYSICAL EXAMINATION: VITAL SIGNS: Temperature 98, pulse 71, respirations 20, saturating 95% on room air, blood pressure 95/57. GENERAL APPEARANCE: The patient is lying in bed, in moderate distress, in pain. HEENT: Normocephalic and atraumatic. There is no scleral icterus noted on exam. NECK: Supple. No palpable lymphadenopathy. CARDIOVASCULAR: Normal S1 and S2 with regular rhythm and rate without any murmurs, rubs, or gallops. RESPIRATIONS: Clear to auscultation bilaterally without any wheezing, rales, or rhonchi. ABDOMEN: Severely distended and tender to palpation with some guarding in the right upper quadrant. Bowel sounds are positive. There is ascites noted. EXTREMITIES: The patient moves all extremities. NEUROLOGICAL: Cranial nerves 2 through 12 are grossly intact and otherwise nonfocal. PSYCHIATRIC: The patient is awake, alert, and oriented x3 with appropriate mood and affect. LABORATORY DATA: White blood cells are 8.6, hemoglobin 9.7, hematocrit 30.4, and platelets 276. INR 1.4. Sodium 129, potassium 3.8, BUN 21, creatinine 0.93, glucose 131, calcium 7.8, AST 102, ALT 357, alkaline phosphatase 506, albumin 2.3, bilirubin 0.8, AFP 27.8. CA-19-9 is 40, CEA 4.99. IMAGING DATA: CT abdomen and pelvis with contrast dated 04/09/2018, shows cirrhosis of the liver with masses with the largest measuring 9.5 x 5 cm in the inferior aspect of the right lobe of the liver and in the large spleen measuring 14.5 cm in length and mild ascites. CT abdomen and pelvis without contrast dated 04/13/2018, shows a large liver measuring 30 cm in craniocaudal dimensions and a large area of heterogeneity involving the majority of the right hepatic lobe as well as left hepatic lobe worrisome for hepatocellular carcinoma, and there has been interval increase in intraperitoneal free fluid since prior study, not appearing to be blood, pathologic information. CT-guided liver core biopsy consistent with hepatocellular carcinoma, well to moderately differentiated. ASSESSMENT AND PLAN: A 62-year-old male with cirrhosis, hepatitis C, chronic alcohol abuse, presenting with blood in stool and vomit with extremely distended abdomen and new diagnosis of hepatocellular carcinoma with disease throughout the liver. The patient is not a curative treatment candidate with transplant resection or radiofrequency ablation due to extent of disease in the liver. The patient has very poor performance status, most of this is due to severe abdominal pain, which is not currently controlled. The patient requires complete staging with a CT scan of the chest to evaluate for lung metastases. The patient would be a candidate for treatment with TKI therapy such as lenvatinib or sorafenib as well as immunotherapy with nivolumab. If the patient is able to be discharged home, follow up with me in the clinic. Currently, barriers to discharge are severe pain and nutritional status. I would recommend Palliative Care consult to help manage his symptoms, but would also consider therapeutic paracenteses if this is thought to be possible by GI or Interventional Radiology, which may help with his pain. We will follow along with you and follow up with this patient in clinic if he is able to be discharged home and would like treatment. Right now, the patient is unable to state if he wants to pursue treatment because of his severe pain and just wants this controlled at this time. Job ID: [id number]
--- NOTE | 2018-04-14 20:01 | ULT ---
ULTRASOUND GUIDED PARACENTESIS 04/14/18 HISTORY: Ascites. COMPARISON: None. FINDINGS: Successful ultrasound guided paracentesis. Total of 5 liters of yellow colored ascites was removed. T he patient tolerated the procedure well. No immediate or postprocedure complications. TECHNIQUE: Consent obtained to perform an ultrasound guided paracentesis. The patient's abdomen was evaluated. L eft lower quadrant was deemed appropriate. Skin was prepped and draped in the sterile fashion. 1% lid ocaine, buffered with sodium bicarbonate used for local anesthesia. Under ultrasound guidance, 5 Fren ch 7 cm Yueh catheter was advanced into the peritoneal space. Via vacuum bottles, a total of 5 liters of yellow colored ascites was removed. Patient tolerated the procedure well. No immediate or postpr ocedure complication. IMPRESSION: Successful ultrasound guided paracentesis. POS: [facility]
[2018-04-14] MEDS: Nicotine 14 MG PATCH TOP SCH (21:00)
[2018-04-14 22:06] LABS: Hemoglobin 9.2 g/dL (14.0-18.0)
[2018-04-15] MEDS: Ondansetron PF 4 MG/2 ML Vial IVP PRN ×3 (03:56→21:38)
[2018-04-15] MEDS: Morphine 4 MG/ML VIAL SLOW IVP PRN ×5 (04:01→21:38)
[2018-04-15] MEDS: Levothyroxine Sodium 50 MCG TAB PO SCH (05:41)
[2018-04-15 06:51] LABS: Anion Gap 10 mmol/L (10-20); BUN (Urea Nitrogen) 20 mg/dL (8.4-25.7); Calc. Creatinine Clearance 107 mL/min (70-130); Calcium 7.7 mg/dL (7.8-10.44); Carbon Dioxide 25 mmol/L (23-31); Chloride 100 mmol/L (98-107); Estimated GFR-MDRD 89; Glucose 129 mg/dL (80-115); Potassium 3.7 mmol/L (3.5-5.1); Sodium 131 mmol/L (136-145)
[2018-04-15] MEDS: Albuterol Sulfate 2.5 mg/3 ml Neb NEB SCH ×4 (07:00→18:20)
[2018-04-15] MEDS: Furosemide 20 MG/2 ML VIAL SLOW IVP SCH (09:14)
[2018-04-15] MEDS: Pantoprazole 40 MG VIAL IVP SCH ×2 (09:15→21:38)
--- NOTE | 2018-04-15 11:13 | PRG ---
DATE OF SERVICE: 04/15/2018 SUBJECTIVE: This is a 62-year-old male with liver cirrhosis, hepatoma, ascites. The patient underwent therapeutic paracentesis today and there was more than 5 L of fluids. The fluid is actually yellowish in color, not bloody. He is feeling better, however, his ascites seems to be coming back. Again, his abdomen is distended. He feels slightly better today, but he really wants another tap done before he can go home. He has no abdominal pain. No nausea. No vomiting. PHYSICAL EXAMINATION: VITAL SIGNS: Temperature 97.6 degrees Fahrenheit, pulse is 77, and blood pressure 160/70. CARDIOVASCULAR: Within normal limits. ABDOMEN: Distended, soft and firm. Abdomen is mildly tender. PLAN: 1. Continue present treatment. 2. Repeat large volume paracentesis tomorrow. Job ID: [id number]
[2018-04-15] MEDS: Dextrose 5 % And 0.9 % NaCl 1,000 ML IV SCH (11:32)
[2018-04-15] MEDS: HYDROcodone/Acetaminophen 5/325 mg Tablet PO PRN ×2 (11:37→15:54)
--- NOTE | 2018-04-15 12:04 | CT ---
CT CHEST WITH IV CONTRAST: HISTORY: Liver cancer. Staging. FINDINGS: At the posterolateral aspect of the superior segment left lower lobe, a rounded 1.2 cm noncalcified s oft tissue density mass abuts the pleura. No other parenchymal lung masses. Minimal atelectasis lef t upper lobe. No enlarged lymph nodes are apparent within the mediastinum. Mild arterial calcification. IMPRESSION: 1. Solitary pulmonary nodule superior segment left lower lobe. Likely metastatic focus. 2. Atherosclerosis. POS: [facility]
[2018-04-15] MEDS: Lorazepam 2 MG/ML VIAL SLOW IVP PRN ×2 (13:18→22:20)
[2018-04-15] MEDS ORDERED: Iopamidol 370 76% 100 ML VIAL ONE (14:34)
[2018-04-15] MEDS ORDERED: Milk Of Magnesia 30 ML UDCUP PO SCH (15:30)
[2018-04-15] MEDS: Nicotine 14 MG PATCH TOP SCH (21:33)
[2018-04-15] MEDS: Docusate 100 MG CAP PO SCH (21:37)
[2018-04-16] MEDS: Morphine 4 MG/ML VIAL SLOW IVP PRN ×5 (02:48→18:57)
[2018-04-16] MEDS: Ondansetron PF 4 MG/2 ML Vial IVP PRN (02:50)
[2018-04-16] MEDS: Dextrose 5 % And 0.9 % NaCl 1,000 ML IV SCH ×2 (05:29→14:49)
[2018-04-16] MEDS: Lorazepam 2 MG/ML VIAL SLOW IVP PRN ×2 (05:33→15:39)
[2018-04-16] MEDS: Levothyroxine Sodium 50 MCG TAB PO SCH (06:02)
[2018-04-16 07:03] LABS: #Eosinphils 0.1 thou/uL (0.0-0.7); #Lymphocytes 0.7 thou/uL (1.20-3.40); #Monocytes 0.8 thou/uL (0.11-0.59); %Basophils 0.4 % (0.0-1.0); %Eosinophils 1.8 % (0.0-10.0); %Lymphocytes 12.3 % (21.0-51.0); %Monocytes 13.5 % (0.0-10.0); Hemoglobin 9.1 g/dL (14.0-18.0); Mean Corpuscular Hemoglobin 29.8 pg (27.0-31.0); Mean Platelet Volume 7.3 fL (7.4-10.4); Platelet Count 326 thou/uL (130-400); Red Blood Cell (RBC) Count 3.05 mill/uL (4.70-6.10); White Blood Cell (WBC) Count 5.6 thou/uL (4.8-10.8)
[2018-04-16] MEDS: Albuterol Sulfate 2.5 mg/3 ml Neb NEB SCH ×4 (07:17→18:46)
[2018-04-16 07:24] LABS: Anion Gap 12 mmol/L (10-20); BUN (Urea Nitrogen) 18 mg/dL (8.4-25.7); Calc. Creatinine Clearance 107 mL/min (70-130); Calcium 7.4 mg/dL (7.8-10.44); Carbon Dioxide 25 mmol/L (23-31); Chloride 101 mmol/L (98-107); Estimated GFR-MDRD 89; Glucose 122 mg/dL (80-115); Sodium 134 mmol/L (136-145)
--- NOTE | 2018-04-16 09:00 | PQF ---
JULIA LANGE MICHAEL E MD [id number] CLINICAL DOCUMENTATION IMPROVEMENT CLARIFICATION FORM: ICD-10 Updated PLEASE DO AN ADDENDUM TO THE PROGRESS NOTE WITH ANY DOCUMENTATION UPDATES OR ADDITIONS AND CARRY THROUGH TO DC SUMMARY. THANK YOU. Date: 04/16 ATTN : DR. ALEXEI ARCHER Please exercise your independent, professional judgment in responding to the clarification form. Clinical indicators are provided on the bottom of this form for your review. Please check appropriate box(s): [ ] Protein Calorie Malnutrition: [ ] Mild [ ] Moderate [ ] Severe [ ] Other Malnutrition (please specify) __ [ x ] Cachexia [ x ] Other diagnosis ___Hepatocellular Carcinoma [ ] Unable to determine CLINICAL INDICATORS - SIGNS / SYMPTOMS / LABS BMI: 26.5 GI CON 04/09 (REV OF SYSTEMS): HE HAS LOST WT FROM ABOUT 280 TO 180 LBS HE REPORTS; PHYSICAL EXAM: GENERAL: HE HAS MUSCLE WASTING. NUTRITION ASSMT 04/11: SUBJ ASSMT: PT STATED UBW OF 270 LBS AROUND BRITTANY TIME LAST YR. THIS IS A 30% WT LOSS IN [address] ALBRIGHT PN 04/13: HE IS CACHECTIC RISK FACTORS: HEPATOCELLULAR CARCINOMA ASCITES TREATMENT: NUTRITION ASSESSMENT NUTRITIONAL SUPPLEMENT (FREYA BURGESS TID106/14 - PRESENT) Moderate Malnutrition (in acute illness) Energy Intake: <75% of estimated energy requirement for > 7 days Weight Loss: 1-2%/1 week; 5%/ 1 month; 7.5%/3 months Other: mild body fat loss; mild muscle mass loss; mild fluid accumulation; Severe Malnutrition (in acute illness) Energy Intake: < 50% of estimated energy requirement for > 5 days Weight Loss: >1-2%/1 week; >5%/1 month; >7.5%/3 months Other: moderate body fat loss; moderate muscle mass loss; moderate- severe fluid accumulation; measurably reduced swimming pool plasterer helper strength Moderate Malnutrition (in chronic illness) Energy Intake: <75% of estimated energy requirement for >1 month Weight Loss: 5%/1 month; 7.5%/3 months; 10%/6 months; 20%/1 year Other: mild body fat loss; mild muscle mass loss; mild fluid accumulation Severe Malnutrition (in chronic illness) Energy Intake: <75% of estimated energy requirement for >1 month Weight Loss: >5%/1 month; >7.5%/3 months; >10%/6 months; >20%/1 year Other: severe body fat loss; severe muscle mass loss; severe fluid accumulation; measurably reduced swimming pool plasterer helper strength THANK YOU! Stephanie (This form is maintained as a part of the permanent medical record) 2014 mention. All Rights Reserved Stephanie Stinson RN, BSN [email or web address] Office: [phone] [facility] ROCHEL[facility] HOSPITALKylie
[2018-04-16] MEDS: Furosemide 20 MG/2 ML VIAL SLOW IVP SCH (09:58)
[2018-04-16] MEDS: Docusate 100 MG CAP PO SCH (09:58)
[2018-04-16] MEDS: Pantoprazole 40 MG VIAL IVP SCH ×2 (09:58→21:31)
[2018-04-16] MEDS ORDERED: Milk Of Magnesia 30 ML UDCUP PO SCH (10:30)
--- NOTE | 2018-04-16 10:33 | ULT ---
ULTRASOUND GUIDED PARACENTESIS: HISTORY: Ascites. COMPARISON: 04/14/2018. FINDINGS: Successful ultrasound-guided paracentesis. A total of 3,900 mL of jazmine-colored ascites was aspirate d. No immediate or postprocedure complication. TECHNIQUE: Consent was obtained to performed ultrasound-guided paracentesis. The right lower quadrant was deeme d appropriate. The skin was prepped and draped in sterile fashion. 1% Lidocaine, buffered with sodi um bicarbonate, was used for local anesthesia. Under ultrasound guidance, a 5 [address]is[address] was advanced into the peritoneal space. A total of 3,900 mL of jazmine-colored ascites was aspirat ed. The patient tolerated the procedure well. No immediate postprocedure complications. IMPRESSION: Successful ultrasound-guided paracentesis. POS: [facility]
[2018-04-16] MEDS: HYDROcodone/Acetaminophen 5/325 mg Tablet PO PRN (12:28)
[2018-04-16] MEDS: Nicotine 14 MG PATCH TOP SCH (21:31)
--- NOTE | 2018-04-17 00:25 | PRG ---
DATE OF SERVICE: 04/16/2018 SUBJECTIVE: Mr. Carmen had paracentesis today and his abdominal pain is much better after that. He has had no nausea or vomiting today. OBJECTIVE: VITAL SIGNS: Temperature 98.2, pulse 82, blood pressure 108/68. GENERAL: He is in no acute distress. Alert and oriented x3. LUNGS: Clear to auscultation bilaterally. HEART: Regular rate and rhythm. ABDOMEN: Soft, mildly distended. Bowel sounds are present. EXTREMITIES: lower extremity edema. IMPRESSION: 1. Metastatic hepatocellular carcinoma. He has unresectable metastatic disease. He has talked to Oncology about potential for chemotherapy. He underwent paracentesis today with 3.9 L removed with improvement in his symptoms. 2. Recurrent ascites with significant abdominal pain associated with that. RECOMMENDATIONS: 1. Continue low-salt diet. 2. Weigh the patient daily to help with fluid management. 3. Add scheduled furosemide and spironolactone orally. 4. Change to oral pantoprazole. Job ID: [id number]
[2018-04-17] MEDS: Morphine 4 MG/ML VIAL SLOW IVP PRN ×5 (01:36→20:52)
[2018-04-17] MEDS: Ondansetron PF 4 MG/2 ML Vial IVP PRN ×3 (01:36→20:52)
[2018-04-17] MEDS: Levothyroxine Sodium 50 MCG TAB PO SCH (05:26)
[2018-04-17] MEDS: Dextrose 5 % And 0.9 % NaCl 1,000 ML IV SCH ×2 (05:27→15:57)
[2018-04-17] MEDS: Albuterol Sulfate 2.5 mg/3 ml Neb NEB SCH ×4 (08:03→18:28)
[2018-04-17] MEDS: Spironolactone 100 MG TAB PO SCH (09:16)
[2018-04-17] MEDS: Furosemide 20 MG TAB PO SCH (09:16)
[2018-04-17] MEDS: Milk Of Magnesia 30 ML UDCUP PO SCH (09:16)
[2018-04-17 10:18] LABS: #Basophils 0.1 thou/uL (0.0-0.2); #Lymphocytes 0.5 thou/uL (1.20-3.40); #Monocytes 0.6 thou/uL (0.11-0.59); #Neutrophils 4.4 thou/uL (1.40-6.50); %Basophils 1.3 % (0.0-1.0); %Eosinophils 0.9 % (0.0-10.0); %Lymphocytes 9.6 % (21.0-51.0); %Monocytes 10.6 % (0.0-10.0); %Neutrophils 77.6 % (42.0-75.0); Hemoglobin 9.2 g/dL (14.0-18.0); Mean Corpuscular HGB CONC 32.3 g/dL (32.0-36.0); Mean Corpuscular Hemoglobin 29.8 pg (27.0-31.0); Mean Corpuscular Volume 92.5 fL (78.0-98.0); Mean Platelet Volume 7.1 fL (7.4-10.4); Platelet Count 353 thou/uL (130-400); RBC Distribution Width 14.9 % (11.5-14.5); Red Blood Cell (RBC) Count 3.09 mill/uL (4.70-6.10); White Blood Cell (WBC) Count 5.6 thou/uL (4.8-10.8)
[2018-04-17 10:28] LABS: INR-International Normal Ratio 1.2
[2018-04-17 10:36] LABS: Anion Gap 12 mmol/L (10-20); BUN (Urea Nitrogen) 17 mg/dL (8.4-25.7); Calc. Creatinine Clearance 104 mL/min (70-130); Calcium 7.7 mg/dL (7.8-10.44); Carbon Dioxide 23 mmol/L (23-31); Chloride 101 mmol/L (98-107); Estimated GFR-MDRD 86; Glucose 182 mg/dL (80-115); Potassium 3.8 mmol/L (3.5-5.1); Sodium 132 mmol/L (136-145)
[2018-04-17 10:37] LABS: ALT (SGPT) 152 U/L (8-55); AST (SGOT) 58 U/L (5-34); Albumin 2.1 g/dL (3.4-4.8); Alkaline Phosphatase 671 U/L (40-150); Bilirubin, Direct 0.4 mg/dL (0.1-0.3); Bilirubin, Total 0.5 mg/dL (0.2-1.2); Protein, Total 5.3 g/dL (5.8-8.1)
--- NOTE | 2018-04-17 13:54 | PRG ---
DATE OF SERVICE: 04/17/2018 SUBJECTIVE: Mr. Carmen had paracentesis yesterday. Today, he feels like the fluid is still rapidly reaccumulating and has abdominal pain associated with it. OBJECTIVE: VITAL SIGNS: Temperature 98.0, pulse 76, and blood pressure 122/76. GENERAL: He is in no acute distress. He is alert and oriented. LUNGS: Clear to auscultation bilaterally. HEART: Regular rate and rhythm. ABDOMEN: Distended with ascites. He is tender diffusely. Bowel sounds are present. EXTREMITIES: lower extremity edema. LABORATORY DATA: INR 1.2. Bilirubin 0.4, AST 58, ALT 152, alk phos 671. IMPRESSION: 1. Metastatic hepatocellular carcinoma. 2. Symptomatic ascites. RECOMMENDATIONS: 1. Paracentesis can be performed on a p.r.n. basis. 2. He was started on spironolactone and furosemide yesterday. 3. Follow weight daily. 4. He is planned to follow up with Oncology to consider chemotherapy. Hospice care is also a reasonable option. Job ID: [id number]
[2018-04-17] MEDS: Lorazepam 2 MG/ML VIAL SLOW IVP PRN (14:29)
[2018-04-17] MEDS: fentaNYL 75 mcg/hour Patch TD SCH (15:56)
[2018-04-17] MEDS: HYDROcodone/Acetaminophen 5/325 mg Tablet PO PRN (15:56)
[2018-04-17] MEDS: Nicotine 14 MG PATCH TOP SCH (20:47)
[2018-04-18] MEDS: Morphine 4 MG/ML VIAL SLOW IVP PRN ×3 (05:28→20:05)
[2018-04-18] MEDS: Ondansetron PF 4 MG/2 ML Vial IVP PRN ×3 (05:28→17:35)
[2018-04-18] MEDS: Levothyroxine Sodium 50 MCG TAB PO SCH (05:29)
[2018-04-18] MEDS: Lorazepam 2 MG/ML VIAL SLOW IVP PRN ×3 (05:29→20:07)
[2018-04-18] MEDS: Dextrose 5 % And 0.9 % NaCl 1,000 ML IV SCH ×2 (05:42→20:04)
[2018-04-18] MEDS: Albuterol Sulfate 2.5 mg/3 ml Neb NEB SCH ×4 (06:57→19:11)
[2018-04-18] MEDS: Spironolactone 100 MG TAB PO SCH (09:22)
[2018-04-18] MEDS: Milk Of Magnesia 30 ML UDCUP PO SCH (09:22)
[2018-04-18] MEDS: Furosemide 20 MG TAB PO SCH (09:22)
[2018-04-18] MEDS: HYDROcodone/Acetaminophen 5/325 mg Tablet PO PRN ×2 (09:27→17:33)
[2018-04-18] MEDS ORDERED: CEFAZOLIN/Water 2 GM/20 ML SYRINGE SLOW IVP SCH (12:45)
--- NOTE | 2018-04-18 14:12 | HP ---
HISTORY OF PRESENT ILLNESS: A 62-year-old male patient with history of cirrhosis, varices, with hepatitis due to hepatitis C and alcohol abuse. The patient has been transfused blood. He has had varices banded. He has had difficult to control ascites. He had a paracentesis on 04/14/2018, again on 04/16/2018. On 04/14/2018, he had 5 L of ascites evacuated, and on 04/16/2018, had another 3.9 L evacuated. I have been asked by Dr. Rowe to see him regarding placement of a peritoneal catheter to facilitate decompression. The patient has had biopsy of his liver on 04/12/2018 revealing hepatocellular carcinoma, well to moderately differentiated. On 04/09/2018, CAT scan of the abdomen and pelvis reveals cirrhosis of the liver with new masses, splenomegaly. His AFP is 27.8 (normal 0.89 to 8.78). Chest CAT scan on 04/15/2018 suggest a solitary pulmonary nodule superior segment left lower lobe, suspect metastatic focus. PT is 15, INR 1.2. Dr. Joshua, Oncology has seen him and due to his diffuse hepatic disease, has felt he probably should have palliative care. ALLERGIES: NONE. MEDICATIONS: 1. Lactulose. 2. Synthroid. 3. Lorazepam. 4. Nicoderm patch. 5. Protonix. 6. Spironolactone. 7. Lasix. Recent upper endoscopy by Dr. Fuchs on 04/10/2018, grade 2 varices, portal gastropathy, normal duodenum. PAST MEDICAL HISTORY: Hepatitis C, hepatocellular carcinoma with probable left lower lobe pulmonary metastasis, cirrhosis, varices, elevated alpha-fetoprotein, tobacco abuse. PAST SURGICAL HISTORY: Salivary gland removed, bilateral inguinal hernia repairs, open ventral hernia, upper midline. On 03/08/2018, Dr. Cervantes performed open bilateral inguinal hernia repairs with mesh. On 03/27/2018, Dr. Cervantes performed ventral hernia repair with mesh 4.3 cm Ventralex. PHYSICAL EXAMINATION: VITAL SIGNS: 5 feet 11 inches, 189 pounds, 97.8, 77, 116/73. LUNGS: Clear to auscultation. CARDIAC: Regular rate and rhythm. No murmur or gallop. ABDOMEN: Distended. Positive fluid wave. Scars from above surgical history. EXTREMITIES: Unremarkable. ASSESSMENT AND PLAN: Cirrhosis secondary to hepatitis C and alcohol abuse with diffuse liver metastasis and probable mets to the left lower lobe lung with elevated alpha fetoprotein and uncontrolled ascites. It is reasonable to place a PleurX catheter. We would recommend that laparoscopically be placed tomorrow. I entered the room today, although he had not eaten, he drank milk within the last 30 minutes prohibiting surgery today. We will plan on laparoscopic decompression of ascites tomorrow with placement of PleurX catheter for outpatient use. He will need home health nursing to help him manage this and more appropriate hospice care. Job ID: [id number]
--- NOTE | 2018-04-18 16:26 | PRG ---
DATE OF SERVICE: 04/18/2018 SUBJECTIVE: Mr. Carmen continues to have abdominal discomfort from abdominal distention related to his ascites. He has no nausea or vomiting. He is tolerating oral diet. OBJECTIVE: VITAL SIGNS: Temperature 98.1, pulse 71, blood pressure 109/69. GENERAL: He is in no acute distress. Alert and oriented x3. LUNGS: Clear to auscultation bilaterally. HEART: Regular rate and rhythm. ABDOMEN: Distended and mildly tender. Bowel sounds are present. EXTREMITIES: No lower extremity edema. IMPRESSION: 1. Metastatic hepatocellular carcinoma. 2. Symptomatic ascites. RECOMMENDATIONS: 1. He has decided to follow through with hospice care. 2. He is planned for paracentesis drain placement for comfort care. 3. I will sign off for now. Please call, if GI can be of assistance. Job ID: [id number]
[2018-04-18] MEDS: Nicotine 14 MG PATCH TOP SCH (20:03)
[2018-04-19] MEDS: Morphine 4 MG/ML VIAL SLOW IVP PRN ×4 (05:00→20:24)
[2018-04-19] MEDS: Ondansetron PF 4 MG/2 ML Vial IVP PRN ×2 (05:00→20:21)
[2018-04-19] MEDS: Levothyroxine Sodium 50 MCG TAB PO SCH (05:20)
[2018-04-19] MEDS: Lorazepam 2 MG/ML VIAL SLOW IVP PRN (05:47)
[2018-04-19] MEDS: Albuterol Sulfate 2.5 mg/3 ml Neb NEB SCH ×4 (06:41→19:24)
[2018-04-19 06:59] LABS: #Eosinphils 0.1 thou/uL (0.0-0.7); #Lymphocytes 0.8 thou/uL (1.20-3.40); #Monocytes 0.9 thou/uL (0.11-0.59); #Neutrophils 5.6 thou/uL (1.40-6.50); %Eosinophils 1.8 % (0.0-10.0); %Lymphocytes 10.3 % (21.0-51.0); %Monocytes 12.3 % (0.0-10.0); %Neutrophils 75.6 % (42.0-75.0); Hemoglobin 9.5 g/dL (14.0-18.0); Mean Corpuscular HGB CONC 32.6 g/dL (32.0-36.0); Mean Corpuscular Hemoglobin 30.1 pg (27.0-31.0); Mean Corpuscular Volume 92.2 fL (78.0-98.0); Mean Platelet Volume 7.3 fL (7.4-10.4); Platelet Count 491 thou/uL (130-400); RBC Distribution Width 14.6 % (11.5-14.5); Red Blood Cell (RBC) Count 3.17 mill/uL (4.70-6.10); White Blood Cell (WBC) Count 7.4 thou/uL (4.8-10.8)
[2018-04-19] MEDS: Dextrose 5 % And 0.9 % NaCl 1,000 ML IV SCH (08:12)
[2018-04-19] MEDS: Furosemide 20 MG TAB PO SCH ×2 (08:12→14:55)
[2018-04-19] MEDS: Spironolactone 100 MG TAB PO SCH (08:12)
[2018-04-19] MEDS ORDERED: CEFAZOLIN 2 GM/50 ML BAG ONE (11:34)
[2018-04-19] MEDS ORDERED: Lidocaine 2% 11 ML SYR ONE ×2 (11:40→11:42)
[2018-04-19] MEDS ORDERED: Bupivacaine HCl 0.5%/Epinephrine 1:200,000/PF 30 ml Vial ONE (11:40)
[2018-04-19] MEDS ORDERED: Lidocaine 2% PF 5 ML VIAL ONE (11:43)
[2018-04-19] MEDS ORDERED: Ondansetron HCl/PF 4 MG/2 ML Vial IVP PRN ×2 (11:52→13:14)
[2018-04-19] MEDS ORDERED: Promethazine HCl 25 MG/ML VIAL IM PRN ×2 (11:52→13:14)
[2018-04-19] MEDS ORDERED: Promethazine HCl 25 MG/ML VIAL SLOW IVP PRN ×2 (11:52→13:14)
[2018-04-19] MEDS ORDERED: Fentanyl 100 MCG/2 ML VIAL ONE (12:00)
[2018-04-19] MEDS ORDERED: SUGAMMADEX SODIUM 500 MG/5 ML VIAL ONE (12:44)
[2018-04-19] MEDS ORDERED: Promethazine HCl 25 MG/ML VIAL ONE (13:32)
[2018-04-19] MEDS: Milk Of Magnesia 30 ML UDCUP PO SCH (14:55)
[2018-04-19] MEDS ORDERED: Ondansetron PF 4 MG/2 ML Vial ONE (18:54)
[2018-04-19] MEDS ORDERED: Lidocaine 1% PF 5 ML VIAL ONE (18:54)
[2018-04-19] MEDS ORDERED: PROPOFOL 200 MG/20 ML VIAL ONE (18:54)
[2018-04-19] MEDS ORDERED: Dexamethasone 20 MG/5 ML VIAL ONE (18:54)
--- NOTE | 2018-04-19 20:15 | OP ---
DATE OF PROCEDURE: 04/19/2018 PREOPERATIVE DIAGNOSES: 1. Hepatocellular carcinoma. 2. Cirrhosis with refractory ascites. 3. Hepatitis C. 4. Alcohol cirrhosis, requiring frequent paracentesis to be discharged home with hospice. POSTOPERATIVE DIAGNOSES: 1. Hepatocellular carcinoma. 2. Cirrhosis with refractory ascites. 3. Hepatitis C. 4. Alcohol cirrhosis, requiring frequent paracentesis to be discharged home with hospice. PROCEDURES PERFORMED: 1. Laparoscopic evacuation of 5 L of ascites noting nodular cirrhotic liver. 2. Laparoscopic placement of PleurX catheter. SURGEON: Greg Landaverde MD ANESTHESIA: General, local 0.5% Marcaine with epinephrine 30 mL mixed to Xylocaine 10 mL. DESCRIPTION OF PROCEDURE: The patient was taken to the operating room. Under general anesthesia, abdomen was prepared with ChloraPrep and draped in routine fashion. Bilateral far lateral subcostal incision made and pneumoperitoneum to 15 mmHg obtained with a Veress needle, placed the other port 5 mm under laparoscopic visualization. laparoscope inserted, 5 L of ascites evacuated. Omentum was adherent to the umbilical area from previous hernia repair. Mesh was noted. Plug patch mesh noted in the groins from previous inguinal hernia repair was opened. PleurX catheter was placed making the exit site incision in the left lower quadrant using the tunneling device to counter incision periumbilical left abdomen and then using the dilator and pull-away sheath placed caudally in the subcutaneous tissue. Rectus sheath visualized laparoscopically penetrating the peritoneum inferiorly/caudally and inducing the catheter into the abdominal cavity, grasped with a grasper, removing the pull-away sheath. It was noted to be in good position independently in the pelvis. Pneumoperitoneum evacuated. All instruments were removed. All 5 mm ports were closed with interrupted UR 0 Vicryl suture. Subcutaneous tissue was approximated with 3-0 Monocryl, skin with subdermal 4-0 Monocryl, and [place] glue applied. The patient tolerated the procedure well. Job ID: [id number]
[2018-04-19] MEDS: Nicotine 14 MG PATCH TOP SCH (20:19)
[2018-04-20] MEDS: HYDROcodone/Acetaminophen 5/325 mg Tablet PO PRN ×3 (00:28→14:39)
[2018-04-20] MEDS: Levothyroxine Sodium 50 MCG TAB PO SCH (06:18)
[2018-04-20] MEDS: Ondansetron PF 4 MG/2 ML Vial IVP PRN ×2 (06:18→12:56)
[2018-04-20] MEDS: Albuterol Sulfate 2.5 mg/3 ml Neb NEB SCH ×3 (06:21→13:52)
[2018-04-20] MEDS: Lorazepam 2 MG/ML VIAL SLOW IVP PRN ×2 (06:28→16:43)
[2018-04-20] MEDS: Milk Of Magnesia 30 ML UDCUP PO SCH (08:57)
[2018-04-20] MEDS: Furosemide 20 MG TAB PO SCH (08:58)
[2018-04-20] MEDS: Spironolactone 100 MG TAB PO SCH (08:58)
[2018-04-20] MEDS: Morphine 4 MG/ML VIAL SLOW IVP PRN (12:56)
[2018-04-20 14:13] VITALS: BMI 25.9
[2018-04-20] MEDS: fentaNYL 75 mcg/hour Patch TD SCH (14:38)
[2018-04-20 16:02] VITALS: BP 107/64; TEMP 98
== END 2018-04-20 16:53 | disposition hospice, home (50) | DRG 424 ==
LOC: ERS 12:47 → T4-B 19:48
PROVIDERS: ADMIT Specialist; ATTEND Specialist
PROC: 30233N1 Transfusion of Nonautologous Red Blood Cells into Peripheral Vein, Percutaneous Approach (ICD-10-PCS; 2018-04-09)
PROC: 0DJ08ZZ Inspection of Upper Intestinal Tract, Via Natural or Artificial Opening Endoscopic (ICD-10-PCS; 2018-04-10)
PROC: 0FB23ZX Excision of Left Lobe Liver, Percutaneous Approach, Diagnostic (ICD-10-PCS; 2018-04-12)
PROC: 0W9G3ZZ Drainage of Peritoneal Cavity, Percutaneous Approach (ICD-10-PCS; 2018-04-14)
PROC: 0W9G3ZZ Drainage of Peritoneal Cavity, Percutaneous Approach (ICD-10-PCS; 2018-04-16)
PROC: 0W9J40Z Drainage of Pelvic Cavity with Drainage Device, Percutaneous Endoscopic Approach (ICD-10-PCS; principal; 2018-04-19)
DX: C22.0 Liver cell carcinoma (principal); C78.02 Secondary malignant neoplasm of left lung; I85.00 Esophageal varices without bleeding; K76.6 Portal hypertension; R64 Cachexia; K92.0 Hematemesis; Z51.5 Encounter for palliative care; F10.10 Alcohol abuse, uncomplicated; F11.10 Opioid abuse, uncomplicated; E03.9 Hypothyroidism, unspecified; M54.5 Low back pain; G89.29 Other chronic pain; F17.210 Nicotine dependence, cigarettes, uncomplicated; E87.5 Hyperkalemia; K70.31 Alcoholic cirrhosis of liver with ascites; K31.89 Other diseases of stomach and duodenum; Z68.25 Body mass index [BMI] 25.0-25.9, adult; Z86.19 Personal history of other infectious and parasitic diseases
CPT/HCPCS: 36415; 36416; 36430; 47000; 49083; 71260; 74176; 74177; 76942; 80048; 80053; 80076; 81003; 82105; 82274; 82378; 83036; 83690; 83735; 84100; 84443; 85025; 85610; 85730; 86301; 86850; 86900; 86901; 88307; 88313; 88333; 93005; 94640; 96361; 96365; 96366; 96368; 96375; 96376; C1729; C9113; J0670; J0744; J1100; J1940; J2001; J2060; J2250; J2270; J2354; J2405; J2550; J2704; J3010; J7050; J7611; P9016

== ENCOUNTER 2018-04-30 16:50 | Inpatient (IN) | payer BC, OTHER ==
[~2018-04-30 16:50] MED LIST: Iopamidol 370 76% 100 ML VIAL ONE
[2018-04-30 17:41] LABS: Hemoglobin 5.2 g/dL (14.0-18.0); Mean Corpuscular Hemoglobin 28.8 pg (27.0-31.0); Mean Corpuscular Volume 92.9 fL (78.0-98.0); Mean Platelet Volume 7.7 fL (7.4-10.4); Platelet Count 560 thou/uL (130-400); Red Blood Cell (RBC) Count 1.82 mill/uL (4.70-6.10)
[2018-04-30 18:01] LABS: Anisocytosis SLIGHT = 6-15 cells (100X) (0-5/hpf); Band 8 % (5-11); MDiff Complete? YES; Monocytes 8 % (0-10); Neutrophil 84 % (42-75); Nucleated RBC 11 % (0); Ovalocytes SLIGHT = 2-5 cells (100X) (0-1/hpf); Platelet Morphology Comment Appears Increased; Polychromasia MODERATE = 3-4 cells (100X) (0-2/hpf); Schistocytes SLIGHT = 2-5 cells (100X) (0-1/hpf); Spherocytes SLIGHT = 1-5 cells (100X) (None Seen); Target Cells SLIGHT = 2-5 cells (100X) (0-1/hpf)
[2018-04-30] MEDS ORDERED: Octreotide Acetate 50 MCG/ML AMP ONE (18:07)
[2018-04-30] MEDS ORDERED: Pantoprazole 40 MG VIAL ONE (18:07)
[2018-04-30] MEDS ORDERED: cefTRIAXone\\ROCEPHIN 1 GM VIAL ONE (18:07)
[2018-04-30] MEDS ORDERED: Sodium Chloride 0.9% 100 ML ONE (18:07)
[2018-04-30 18:22] LABS: INR-International Normal Ratio 1.3; PTT 43.5 SEC (22.9-36.1); Prothrombin Time 16.3 SEC (12.0-14.7)
[2018-04-30 18:51] LABS: ALT (SGPT) 1863 U/L (8-55); AST (SGOT) 904 U/L (5-34); Albumin 2.2 g/dL (3.4-4.8); Alkaline Phosphatase 1830 U/L (40-150); Anion Gap 18 mmol/L (10-20); BUN (Urea Nitrogen) 76 mg/dL (8.4-25.7); Bilirubin, Total 1.1 mg/dL (0.2-1.2); Calc. Creatinine Clearance 0 mL/min (70-130); Calcium 7.9 mg/dL (7.8-10.44); Carbon Dioxide 18 mmol/L (23-31); Chloride 97 mmol/L (98-107); Estimated GFR-MDRD 33; Glucose 96 mg/dL (80-115); Lipase 34 U/L (8-78); Magnesium 3.1 mg/dL (1.6-2.6); Potassium 6.3 mmol/L (3.5-5.1); Protein, Total 6.2 g/dL (5.8-8.1); Sodium 127 mmol/L (136-145)
[2018-04-30] MEDS ORDERED: Octreotide Acetate 1,250 MCG in Sodium Chloride 0.9% 250 ML 250 ML IVPB SCH (19:00)
[2018-04-30] MEDS ORDERED: Octreotide Acetate 50 MCG/ML AMP SLOW IVP SCH (19:00)
[2018-04-30] MEDS ORDERED: Calcium Chloride 1 GM/10 ML Abboject SYRINGE ONE (19:20)
[2018-04-30] MEDS ORDERED: Sodium Bicarb 50 MEQ/50 ML VIAL ONE (19:20)
[2018-04-30] MEDS ORDERED: Sodium Bicarb 50 MEQ/50 ML Abboject 8.4% SYRINGE ONE (19:21)
[2018-04-30] MEDS ORDERED: Dextrose 50% Abboject 50 ML SYRINGE ONE (19:22)
[2018-04-30] MEDS ORDERED: Insulin Regular 300 UNITS/3 ML VIAL ONE ×2 (19:23→19:27)
[2018-04-30] MEDS ORDERED: Morphine 4 MG/ML VIAL ONE (20:12)
--- NOTE | 2018-04-30 20:38 | CT ---
CT ABDOMEN NONCONTRAST CT PELVIS NONCONTRAST: (urolithiasis protocol) DATE: 04/30/2018 TIME: 7:48 p.m. HISTORY: A 62-year-old male with increasing abdominal pain after liver mass biopsy; rule out hematoma. COMPARISON: 04/13/2018 TECHNIQUE: IV injection of iodinated contrast media: none Oral contrast media: none FINDINGS: Other than for urolithiasis, the lack of IV and oral contrast limits the evaluation. In the superior segment of the left lower lobe, abutting the posterolateral pleural surface, there is a noncalcified, round, 1.1 x 1.2 x 1.1 cm pulmonary nodule. The previous CT did not reach this high up. No pleural effusion or consolidation at the lung bases. No pneumoperitoneum. Hepatomegaly. L arge number of irregularly-shaped low attenuation lesions throughout the liver parenchyma, especially right lobe, but also a significant portion of the left lobe, many of them confluent into large combi andreina masses. This appears worse now compared to previous. Liver margins nodular, consistent with ci rrhosis. Small amount of free fluid around the liver. Moderate to large amount of free fluid in the right lower quadrant of the abdomen. Small amount of fluid in the left side of the abdomen. Overal l volume of ascites has decreased since the previous CT, because of interval paracentesis. There is also a new intraperitoneal catheter entering through the left lower quadrant rectus abdominis muscle, then ascending along the left paracolic gutter, with the distal tip lateral to the spleen. No renal , ureteral, or bladder calculus. Numerous sigmoid colonic diverticula. Difficult to evaluate for ac bj diverticulitis because of the fat stranding due to intraperitoneal edema and ascites. No small b owel dilation. No hydronephrosis. No abdominal aortic aneurysm. No acute or aggressive findings in volving the pancreas. No adrenal nodule. Splenomegaly. IMPRESSION: 1. Interval worsening of very extensive low attenuation lesions throughout the liver, highly suspici ous for hepatocellular carcinoma. 2. Hepatic cirrhosis. 3. Small amount of ascites, decreased in volume compared to 04/13/2018. 4. Interval placement of left-sided peritoneal catheter. 5. Splenomegaly. 6. Left upper lobe 12 mm pulmonary nodule. Pulmonary metastatic nodule is a possibility. DONNA Cheng POS: [place]
[2018-04-30 21:00] LABS: Hep B Core Total Ab Non-Reactive (NonReactive); Hep B Core Total Index 0.07 S/CO (0-0.79)
[2018-04-30] MEDS ORDERED: Albuterol Sulfate 2.5 mg/3 ml Neb ONE (21:16)
[2018-04-30 22:03] LABS: Hemoglobin 4.1 g/dL (14.0-18.0); Mean Corpuscular Hemoglobin 28.4 pg (27.0-31.0); Mean Corpuscular Volume 91.7 fL (78.0-98.0); Mean Platelet Volume 7.9 fL (7.4-10.4); Platelet Count 413 thou/uL (130-400); RBC Distribution Width 15.8 % (11.5-14.5); Red Blood Cell (RBC) Count 1.43 mill/uL (4.70-6.10); White Blood Cell (WBC) Count 12.4 thou/uL (4.8-10.8)
[2018-04-30 22:16] LABS: Band 10 % (5-11); Lymphocytes 13 % (21-51); MDiff Complete? YES; Monocytes 11 % (0-10); Neutrophil 66 % (42-75)
[2018-04-30 22:17] LABS: ALT (SGPT) 1583 U/L (8-55); AST (SGOT) 827 U/L (5-34); Albumin 1.8 g/dL (3.4-4.8); Alkaline Phosphatase 1617 U/L (40-150); Anion Gap 16 mmol/L (10-20); BUN (Urea Nitrogen) 75 mg/dL (8.4-25.7); Bilirubin, Total 0.7 mg/dL (0.2-1.2); Calc. Creatinine Clearance 0 mL/min (70-130); Calcium 7.8 mg/dL (7.8-10.44); Carbon Dioxide 19 mmol/L (23-31); Chloride 98 mmol/L (98-107); Estimated GFR-MDRD 34; Globulin 3.4 g/dL (2.4-3.5); Glucose 96 mg/dL (80-115); Protein, Total 5.2 g/dL (5.8-8.1); Sodium 127 mmol/L (136-145)
[2018-04-30 22:25] LABS: Lactic Acid 2.3 mmol/L (0.5-2.2)
[2018-04-30] MEDS ORDERED: Ondansetron PF 4 MG/2 ML Vial SLOW IVP PRN (23:59)
[2018-05-01] MEDS ORDERED: HYDROcodone/Acetaminophen 5/325 mg Tablet PO PRN ×2
[2018-05-01 00:17] LABS: HBSAg Index 0.19 S/CO (0-0.99); Hep B Surf Ag Non-Reactive S/CO (NonReactive)
[2018-05-01 00:18] LABS: Hep B Surf AB Non-Reactive (NonReactive)
[2018-05-01 00:47] LABS: Hep B Surf Ag Non-Reactive S/CO (NonReactive)
[2018-05-01] MEDS: Sodium Chloride 0.9% 1,000 ML IV SCH ×2 (00:58→17:56)
[2018-05-01 01:21] LABS: Hep C IgG Ab Reflex HepC Qnt (NonReactive)
[2018-05-01 01:22] LABS: Hep C Index 13.43 S/CO (0-0.79)
[2018-05-01] MEDS: Pantoprazole 80 MG in Sodium Chloride 0.9% 100 ML IVPB SCH ×2 (02:19→17:55)
--- NOTE | 2018-05-01 03:46 | CON ---
DATE OF CONSULTATION: TYPE OF CONSULTATION: Nephrology. REASON FOR CONSULTATION: Hyperkalemia. HISTORY OF PRESENT ILLNESS: This is a very pleasant 62-year-old gentleman, who presented to the hospital with variceal bleed and potassium of 6.4. The patient is taking Lasix as well as spironolactone and has severe liver failure. The patient has dyspnea and is in [id number] distress. PAST MEDICAL HISTORY: Significant for end-stage liver disease, hepatitis C, cirrhosis, ascites, hepatocellular carcinoma, variceal bleed, distant metastases, elevated alpha fetoprotein, history of slightly tender liver with bilateral inguinal hernia repair. SOCIAL HISTORY: No alcohol or drug use. FAMILY HISTORY: Negative for ESRD. ALLERGIES: REVIEWED. HOME MEDICATIONS: List reviewed. REVIEW OF SYSTEM: Unobtainable. The patient is in distress. PHYSICAL EXAMINATION: GENERAL: The patient is awake and alert. VITAL SIGNS: Pulse 70, breathing 16, blood pressure 130/76. HEAD/NECK: Normocephalic. Atraumatic. EYES: EOMI. No deformity. EARS: Clear. No ulcers. NOSE: Intact. No lesions. MOUTH: Clear. No discharge. THROAT: Clear. No exudate. LUNGS: Clear. No crackles. CARDIAC: S1, S2. No rub. ABDOMEN: Shows ascites. GENITALIA/RECTUM: Bruce absent. BACK/EXTREMITIES: Edema 0+. NEUROLOGICAL: Alert and motor intact. SKIN: LYMPHATICS: LABORATORY DATA: Potassium 6.4, creatinine is 2.05. ASSESSMENT AND RECOMMENDATIONS: 1. Acute kidney injury with chronic kidney disease and hyperkalemia. Plan, urgent dialysis catheter to increase metabolic acidosis. 2. Hyponatremia due to kidney failure. 3. Anemia. We will plan transfusion of 2 units of packed red blood cells with dialysis. Overall prognosis is extremely poor. I would recommend hospice care evaluation. Job ID: [id number]
--- NOTE | 2018-05-01 04:34 | HP ---
CHIEF COMPLAINT ON ADMISSION: Hyperkalemia, extreme anemia due to vomiting with blood HISTORY OF PRESENT ILLNESS: The patient is a 62-year-old male recently hospitalized at [facility] for hepatocellular carcinoma, cirrhosis, hep C, and sent home with a drain placed in his abdomen for drainage of ascites with hospice in [place]. The patient did not get a very good experience with that, not receiving his pain medicine on time and having an experienced care to withdraw the ascites from his abdomen such that he is continued to deteriorate over the last 2 weeks and comes into the emergency room tonight because his hemoglobin is down to 5 and hematocrit 16. He was DNR at Hospice and initially come into the ER for further evaluation. Of note, I believe he wants to have procedures done including transfusion and dialysis to correct his hemiparalysis. His potassium is 6.3 and sodium down to 127. However, he may not remain a full code due to his desire to let go. Currently , he does wish to have dialysis as well as blood transfusion, but anticipate being a DNR thereafter, therefore, he will be going to a medical bed because he is not anticipated to be coded. He will be listed as a DNR per his medical [id number] is desired and his. PAST MEDICAL HISTORY: As mentioned previously for hepatitis C, cirrhosis, liver cancer, ascites, polysubstance abuse, and alcoholism. PAST SURGICAL HISTORY: Includes most recently placement of ascites drainage tube, hernia surgeries x2. MEDICATIONS: on ER chart REVIEW OF SYSTEMS: CONSTITUTIONAL: Denies chills, fever, or malaise. HEENT: Eyes, ears, nose, and throat without sores, lesions, or drainage. CHEST: Without cough or shortness of breath. CARDIOVASCULAR: Denies chest pain or palpitations. GI: Reports abdominal pain with distention. Denies constipation, but x-ray shows significant stool on the left. Denies diarrhea or vomiting. MUSCULOSKELETAL: Denies pain in joints or muscle groups. SKIN: Denies any new rashes or lesions. NEUROLOGIC: Denies headaches, confusion, or trouble with mentation. PHYSICAL EXAMINATION: VITAL SIGNS: At the time of admission, vital signs; Blood pressure is 98/50, pulse 90, respirations 17 and nonlabored, and 99% O2 on room air. GENERAL: This is a cachectic male, is lethargic, but responsive and answers questions appropriately. He appears pain free. HEENT: Temporal wasting, sunken eyes. TMs, nares, pharynx are clear. NECK: Supple. Trachea midline. CHEST: With good breath sounds bilaterally. Chest wall shows emaciation. HEART: Regular rate and rhythm. ABDOMEN: Distended, mildly tender to palpation. : Shows extreme lymphedema of the groin with large scrotum and penis due to fluid. EXTREMITIES: Muscular wasting in all upper and lower extremities, but with normal range of motion. SKIN: Shows poor turgor and drapes in like a sheet. NEUROLOGIC: Cranial nerves are intact. Unable to test gait and cerebellar function. Sensory exam is intact. Mental status is lethargic. LABORATORY DATA: Thus far, WBC is 13.0, hemoglobin 5.2, hematocrit 16.9, and platelets of 560. The repeat 4 hours later shows hemoglobin of 4.1, hematocrit 13.1. PT 16.3, INR 1.3 and PTT is 43.5. Sodium 127, potassium 6.3, chloride 97 , CO2 of 18, BUN 76, creatinine 2.05 with a GFR 33, glucose 96. AST 904, ALT 1863 , alkaline phosphatase 1830. Albumin 2.2. CT of the abdomen is uninformative due to lack of contrast via oral or IV route, they did find some urolithiasis. ASSESSMENT: 1. Probably variceal bleed. 2. Acute renal failure. 3. Acute symptomatic anemia. 4. Hepatocellular carcinoma. 5. Hepatorenal syndrome. 6. Hyperkalemia. 7. Hyponatremia. 8. Cirrhosis. 9. Ascites with lymphedema. PLAN: Will be to transfusion him in dialysis. Serial reassessment. He is currently a DNR per his property caretaker and himself. Pain medication will be provided to comfort measures and forced serial re-evaluation pending treatment. Consultation with Dr. Washington and Dr. Mcrae for GI and dialysis treatment. Job ID: [id number] [facility]
--- NOTE | 2018-05-01 05:31 | CON ---
DATE OF CONSULTATION: 04/30/2018 REASON FOR CONSULTATION: Hematemesis/coffee-ground emesis, cirrhosis of the liver. CONSULTING PHYSICIAN: Dr. Crews. HISTORY OF PRESENT ILLNESS: The patient is a 62-year-old male with past medical history of chronic hepatitis C infection, status post treatment, alcohol abuse, hypothyroidism, and cirrhosis of the liver complicated by hepatic encephalopathy and esophageal varices and more recent diagnosis of metastatic hepatocellular carcinoma, presenting with complaints of hematemesis. Per chart review, the patient was recently admitted to the hospital in March 2018 with complaints of coffee-grounds emesis as well as a decreased H and H on admission. He subsequently underwent an upper endoscopy which showed large (grade 2) esophageal varices in the distal esophagus without any high-risk stigmata of active or recent bleeding. He was also noted during that procedure to have portal hypertensive gastropathy, which could potentially have contributed to the melenic type stools he was having at that time. Over the course of that hospitalization, his H and H was stabilized with medical management and given the nature of his metastatic HCC, was ultimately discharged to home with home hospice. However, approximately 4 to 5 days ago, he states that he began to have a repeat episodes of coffee-grounds emesis, having approximately one episode per day, characterized as dark black/brown colored liquid emesis. This was associated with one episode of a darker colored semi-solid stool approximately 2 days ago, but did not have any additional melenic stools over the course of the last 4 to 5 days. In fact, per the patient's medical power of patent prosecution attorney, he has been having normal coloration of stool for the last 2 days. He is currently having approximately semi-solid bowel movement every 1 to 2 days with increased straining in order to facilitate defecation. He is currently taking lactulose as an outpatient in order to treat hepatic encephalopathy, but has been minimally compliant with this regimen taking "swigs from the bottle" in order to treat his hepatic encephalopathy. With the repeated episodes of coffee-grounds emesis as well as the one episode of melena, I prompted him to seek healthcare assistance again here at the hospital. On admission here in the ER, he was noted to have a significantly decreased H and H when compared to his discharge H and H approximately 1.5 to 2 weeks ago. He is also noted to have significant hyperkalemia on routine labs and is currently being evaluated by the Nephrology Service for more emergent dialysis. Currently, he states he is having increased abdominal pain located in the periumbilical region and characterized as a cramping type sensation, would radiate to the generalized abdomen, has waxing and waning severity and reaching a severity of approximately 8 to 9/10. There is no clear exacerbating or alleviating factors for this abdominal pain, although he mentions that he might have some decrease in his pain with having a bowel movement. Currently, denies any fevers, chills, hematochezia, grossly bloody emesis, dysphagia, or odynophagia. REVIEW OF SYSTEMS: A 10-category review of systems was obtained with all responses negative except for the pertinent positives as listed in the HPI. PAST MEDICAL HISTORY: As per HPI. PAST SURGICAL HISTORY: Salivary gland resection, inguinal hernia repair, EGD performed on April 10, 2018. FAMILY HISTORY: Denies any GI malignancies. SOCIAL HISTORY: Denies any tobacco, alcohol, or illicit drug use. Does have a prior extensive alcohol abuse history, but has not been drinking alcohol for some time. OUTPATIENT MEDICATIONS: Reviewed. ALLERGIES: NO KNOWN DRUG ALLERGIES. PHYSICAL EXAMINATION: VITAL SIGNS: No vital signs are in the chart available for review. Per my assessment at bedside, the patient was noted to have a pulse of 89 beats per minute as well as blood pressure of 78/53, respiratory rate was 14, saturating approximately 96% on room air. GENERAL: The patient was lying in bed, in no acute distress. Alert and oriented x3, but very somnolent during the interview and examination. HEENT: Neck supple. No JVD noted and no scleral icterus noted. CARDIOVASCULAR: Regular rate and rhythm with a 3 to 4/6 systolic murmur best heard at the left lower sternal border. RESPIRATORY: Clear to auscultation bilaterally with no discernible wheezes or rales. ABDOMEN: Hypoactive bowel sounds. Soft. Moderate to severe distention, but not tense to palpation. Tenderness to palpation was observed in the right upper quadrant, mid epigastric, left upper quadrant and periumbilical regions. EXTREMITIES: No cyanosis or clubbing, 1+/2+ bilateral lower extremity edema was noted to the level of the knee. LABORATORY DATA: CBC with a white blood cell count of 13, hemoglobin 5.2, hematocrit 16.9, platelets 560. INR 1.3. Chemistry with a sodium of 127, potassium 6.3, chloride 97, CO2 of 18, BUN 76, creatinine 2.05, glucose 96. AST 904, ALT 1863, alkaline phosphatase 1830, total bilirubin 1.1, albumin 2.2. MELD score calculation yielding a score of 24, which carries a 14-15 percent 90-day mortality. IMAGING DATA: CT of the abdomen and pelvis obtained on April 30, 2018 showed interval worsening of very extensive low-attenuation lesions throughout the liver consistent with his hepatocellular carcinoma. There was a small amount of ascites, which is decreased when compared to previous as well as the interval placement of a left-sided peritoneal catheter. He does exhibit cirrhotic morphology as well as splenomegaly consistent with portal hypertension, as well as a left upper lobe 12 mm pulmonary nodule concerning for metastatic disease. ASSESSMENT AND PLAN: The patient is a 62-year-old male with past medical history of alcohol abuse, hypothyroidism, chronic hepatitis C infection, status post treatment with presumably sustained virologic response, cirrhosis complicated by esophageal varices and hepatic encephalopathy, and recent diagnosis of hepatocellular carcinoma with probable metastatic disease, presenting with hematemesis. Hematemesis: The patient is presenting with a 4 to 5 day history of daily episodes of coffee-grounds emesis concerning for hematemesis when coupled with a significantly decreased H and H on admission. On his recent admission in March of 2018, he was admitted for a very similar problem, although the patient states that it is distant more this time in that his emesis is more water-based as opposed to thick as it was on the previous admission. On the previous admission, the EGD showed large grade 2 esophageal varices, as well as portal hypertensive gastropathy, but no evidence of high-risk stigmata seen in either region consistent with an upper GI bleed. At this time, the more likely reason why he is having coffee-grounds emesis would be of further exacerbation of his portal hypertensive gastropathy with mild oozing of blood from very friable gastric mucosa. The likelihood of significant advancement of the grade 2 esophageal varices is less likely given the recent nature of the EGD and no significant worsening of his portal hypertension in the meantime, however, at this time, an esophageal bleed cannot be ruled out nor can the interval development of something like [place]ulafoy arteriovenous malformation be ruled out at this time as well. Recommendations: 1. We would continue to trend H and H and transfuse as necessary to maintain an H and H of 7/. 2. Continue to monitor clinically for signs of active GI bleeding. 3. This patient needs adequate resuscitation prior to intervention of his hematemesis which would require correction of his hyperkalemia as well as transfusion of PRBCs to help stabilize his blood pressure as well as his H and H. We will proceed with upper endoscopy once this has been adequately achieved. 4. We would recommend placing the patient in at least an intermediate care bed for continued monitoring despite his DNR/DNI status (although the DNR/DNI status would need to be suspended if upper endoscopy is contemplated). 5. We would defer to Nephrology Service for hyperkalemia associated with a probable blood loss into the GI tract and absorption of potassium. 6. Pain control per primary team. Although I would attempt to minimize narcotics at this time given significant constipation seen on the CT. Cirrhosis: The patient is presenting with a history of cirrhosis of the liver complicated by esophageal varices as well as a history of hepatic encephalopathy, for which he had been taking lactulose as an outpatient. He has been minimally compliant with the lactulose administration, having approximately one semi-solid bowel movement every 1 to 2 days with intermittent episodes of mild lethargy and confusion, but it is unclear if this is due to the administration of narcotic pain medications for an exacerbation of his hepatic encephalopathy. At this time given no clear answer in this case, I would attempt to minimize narcotics as much as possible, but still keep the patient comfortable, but administer lactulose on a more regular basis to achieve a target stooling pattern of approximately 3 to 4 bowel movements per day. Given his current MELD score of 24, it carries with it a 14-15 percent 90-day mortality and given the extensive hepatocellular carcinoma infiltration of the liver, his prognosis is poor. The patient had been discharged to home hospice, but at this time it is unclear whether or not he is full code versus full DNR/DNI, so we will need to further discuss this with medical power of patent prosecution attorney. Recommendations: 1. We would start patient on more scheduled lactulose, having him drink approximately 20 mL b.i.d. and titrate to target stooling pattern of approximately 3 to 4 bowel movements per day. 2. We would place the patient on octreotide drip, PPI drip, as well as ceftriaxone daily given the probable upper GI bleed. 3. We would defer to Oncology Service for further management of his extensive hepatocellular carcinoma with possible placement on sorafenib. 4. We will continue to follow. Please call with any questions. Job ID: [id number]
[2018-05-01] MEDS: Levothyroxine Sodium 50 MCG TAB PO SCH (07:11)
[2018-05-01 07:44] LABS: Hemoglobin 6.7 g/dL (14.0-18.0); Mean Corpuscular HGB CONC 31.5 g/dL (32.0-36.0); Mean Corpuscular Hemoglobin 28.4 pg (27.0-31.0); Mean Corpuscular Volume 90.1 fL (78.0-98.0); Mean Platelet Volume 7.7 fL (7.4-10.4); Platelet Count 381 thou/uL (130-400); RBC Distribution Width 15.2 % (11.5-14.5); Red Blood Cell (RBC) Count 2.37 mill/uL (4.70-6.10)
[2018-05-01 08:03] LABS: Anion Gap 14 mmol/L (10-20); BUN (Urea Nitrogen) 60 mg/dL (8.4-25.7); Calc. Creatinine Clearance 53 mL/min (70-130); Calcium 7.7 mg/dL (7.8-10.44); Carbon Dioxide 22 mmol/L (23-31); Chloride 101 mmol/L (98-107); Estimated GFR-MDRD 43; Glucose 125 mg/dL (80-115); Potassium 5.4 mmol/L (3.5-5.1); Sodium 132 mmol/L (136-145)
[2018-05-01 08:04] LABS: Band 11 % (5-11); Hypochromia SLIGHT = 6-15 cells (100X) (0-5/hpf); Lymphocytes 7 % (21-51); MDiff Complete? YES; Monocytes 12 % (0-10); Neutrophil 70 % (42-75); Nucleated RBC 2 % (0); Platelet Morphology Comment Appears Adequate; Polychromasia MODERATE = 3-4 cells (100X) (0-2/hpf); Target Cells SLIGHT = 2-5 cells (100X) (0-1/hpf)
[2018-05-01] MEDS ORDERED: fentaNYL 75 mcg/hour Patch TD SCH (09:00)
[2018-05-01] MEDS ORDERED: Heparin 10,000 UNITS/ 10 ML VIAL ONE ×2 (09:00→10:00)
--- NOTE | 2018-05-01 13:10 | PRG ---
DATE OF SERVICE: 05/01/2018 SUBJECTIVE: A 62-year-old gentleman being seen for acute kidney injury. The patient denies any nausea, vomiting, or chest pain. OBJECTIVE: CONSTITUTIONAL: The patient is awake and alert. VITAL SIGNS: Afebrile. Pulse 69, breathing 16, and blood pressure 89/54. GENERAL APPEARANCE AND MENTAL STATUS: Fair. HEAD/NECK: Normocephalic. Atraumatic. EYES: EOMI. No deformity. EARS: Clear. No ulcers. NOSE: Intact. No lesions. MOUTH: Clear. No discharge. THROAT: Clear. No exudate. LUNGS: Clear. No crackles. CARDIAC: S1, S2. No rub. ABDOMEN: Benign. Bowel sounds positive. GENITALIA/RECTUM: Bruce absent. BACK/EXTREMITIES: Edema 0+. NEUROLOGICAL: Alert and motor intact. SKIN: LYMPHATICS: LABORATORY DATA: Labs show hemoglobin 6.7. Potassium 5.4. ASSESSMENT AND PLAN: 1. Acute kidney injury with hyperkalemia and oliguria. Plan dialysis again. 2. Hyperkalemia, plan dialysis. 3. Anemia, plan transfusion. Overall prognosis is poor. I would recommend hospice care. Job ID: [id number]
[2018-05-01] MEDS ORDERED: Lidocaine 1% PF 5 ML VIAL ONE (14:21)
--- NOTE | 2018-05-01 16:07 | PRG ---
DATE OF SERVICE: 05/01/2018 SUBJECTIVE: Mr. Carmen has had no bleeding since admission. No melena. No hematemesis. He reports that he had some dark stools 4 to 5 days before admission. The sister who is a primary treasury manager is here today and states that they have been taking fluid off through a catheter, it seems abdomen p.r.n. as there has been no blood there. Apparently, they became frustrated with the hospice situation as they were not coming out to the house and they fired them. Dr. Rowe subsequently put the patient back in the hospital. There is a report that last night he had hematemesis, but I cannot confirm that. His hemoglobin when left here on 04/19 was 9.5, and when he returned, hemoglobin of 5.2, platelet count is 381. BUN when he returned was 75 . His potassium is down from 6 to 5.4. He received dialysis last night and again today. He just finished dialysis today. He has received 5 units of blood. OBJECTIVE: VITAL SIGNS: Presently, vital signs are stable, he is afebrile. NECK: Supple. LUNGS: Clear. ABDOMEN: Protuberant, distended. EXTREMITIES: He has some edema. : He has scrotal edema. ASSESSMENT: 1. Extensive hepatocellular carcinoma over 10 cm involving two lobes of the liver. 2. History of cirrhosis from alcohol abuse and hepatitis C, just recently stopped drinking in the past month. 3. Elevated liver enzymes on admission, consistent with some shock liver. 4. Drop in hemoglobin. It is unclear if this is just a production issue related to his tumor, whether he has had some GI bleeding. He had a previous EGD last admission with some grade 2 varices that were nonbleeding, portal hypertensive gastropathy. We will proceed with EGD and probably band varices at this time in light of recurrent history of gastrointestinal bleeding. 5. I have asked Palliative Care to come and evaluate the patient. I have explained to the patient's sister and himself that despite his long-term mortality and they are open to that conversation again. If the patient is not going to home with hospice, then they do not need to be taking fluid out of his catheter but it seems abdomen on their own at home has the risk setting him into renal failure. If he is going to be on hospice care, then they can take out fluid as needed to keep him comfortable, discussed that with the patient's sister and the patient today as well. Job ID: [id number]
[2018-05-01] MEDS ORDERED: KETAMINE 100 MG/ML (5ML VIAL) ONE (16:22)
[2018-05-01 17:03] LABS: Hemoglobin 8.8 g/dL (14.0-18.0)
[2018-05-01 17:28] LABS: Anion Gap 15 mmol/L (10-20); BUN (Urea Nitrogen) 43 mg/dL (8.4-25.7); Calc. Creatinine Clearance 68 mL/min (70-130); Calcium 7.6 mg/dL (7.8-10.44); Carbon Dioxide 25 mmol/L (23-31); Chloride 101 mmol/L (98-107); Estimated GFR-MDRD 56; Glucose 128 mg/dL (80-115); Potassium 4.6 mmol/L (3.5-5.1); Sodium 136 mmol/L (136-145)
--- NOTE | 2018-05-01 17:46 | CON ---
DATE OF CONSULTATION: 05/01/2018 REASON FOR CONSULTATION: IMC placement. HISTORY OF PRESENT ILLNESS: The patient is a 62-year-old male with an extensive medical history. He came in last night with hyperkalemia and severe anemia. The patient apparently had been DNR, on hospice prior to being brought to the emergency room. He has been resuscitated with some blood and is scheduled to get some more blood. Additionally, he is getting dialysis for hyperkalemia and is scheduled for endoscopy later today. PAST MEDICAL HISTORY: 1. Chronic hepatitis C. 2. Cirrhosis. 3. Hepatocellular carcinoma. 4. Ascites. 5. Substance abuse. 6. Alcoholism. PAST SURGICAL HISTORY: 1. Ascites drainage tube. 2. Hernia surgery x2. 3. Salivary gland resection. 4. EGD. FAMILY MEDICAL HISTORY: Unremarkable. SOCIAL HISTORY: Abused alcohol in the past, but quit drinking some time ago. Does not smoke. Does not use illicit drugs. ALLERGIES: NONE. MEDICATIONS: These were reviewed in a list of home medication section on the chart. PHYSICAL EXAMINATION: VITAL SIGNS: Temperature 99.2, pulse 79, respirations 18, O2 saturation 99% on room air, blood pressure 89/54. GENERAL: The patient appears chronically ill. HEENT: Sclerae slightly icteric. Oropharynx clear. NECK: No JVD. LUNGS: Clear. CARDIAC: S1 and S2. Slightly tachycardic. ABDOMEN: Prominently distended. EXTREMITIES: No clubbing, cyanosis, edema. LABORATORY DATA: Sodium 132, potassium 5.4, chloride 101, CO2 of 22, BUN 60, creatinine 1.6, glucose 125, lactate 2.3, AST 827, ALT 583, hemoglobin 6.7, hematocrit 21.4, white blood cell count 11, platelet count 381. Abdominal and pelvic CT demonstrated cirrhosis, small amount of ascites, left-sided peritoneal catheter, a 12 mm pulmonary nodule left upper lobe and extensive tumor in the liver suspicious for hepatocellular carcinoma. ASSESSMENT: 1. Gastrointestinal bleeding, varices versus other. 2. Hepatocellular carcinoma. 3. Ascites. 4. Severe anemia. 5. Hyperkalemia. 6. Acute on chronic renal failure. RECOMMENDATIONS: The patient is currently on appropriate treatment from Nephrology and GI standpoint. He is receiving blood. He is to have an EGD later. He is on octreotide drip. His code status probably needs to be reviewed with primary team as he may be wishing to switch to full code status. Job ID: [id number]
[2018-05-01] MEDS: cefTRIAXone\\ROCEPHIN 1 GM in Sodium Chloride 0.9% 100 ML IVPB SCH (17:55)
--- NOTE | 2018-05-02 01:00 | OP ---
DATE OF PROCEDURE: 05/08/2018 PREPROCEDURE DIAGNOSES: 1. Anemia. This has been an issue at last admission. 2. Reported hematemesis, although the patient denies that. There were some reports of coffee-grounds emesis in the emergency room. The nurses have noted no signs of emesis since admission and he has had brown stool. 3. Transfusion requirement of 5 units since admission with hemoglobin of 4. 4. Previous endoscopy showed some grade 2-3 varices, but no overt stigmata of bleeding. 5. The patient's sister reports that he had some black stools last week. POSTPROCEDURE DIAGNOSIS: 1. No signs of active upper gastrointestinal bleeding. 2. Grade 2-3 varices, some with red Vimal signs, but again no punctate. Bleeding sites were identified. The decision was go ahead and band these. Three bands were placed with good effect and ablation of the varices. 3. Grade 3 portal gastropathy in the stomach with no spontaneous bleeding or coffee-grounds. 4. Normal duodenum in the 3rd portion with yellow bile. ANESTHESIA: TIVA. RECOMMENDATIONS: Continue octreotide for 1-2 more days then discontinue, if anemia continues to be an option, consider other etiologies such as hemolysis or poor production related to his hepatoma. DESCRIPTION OF PROCEDURE: The patient was informed of the risks, benefits, possible complications of endoscopy including perforation, bleeding risk, reaction to medication and aspiration and informed consent was obtained. The patient was brought to the Endoscopy Suite where he was sedated in gradual fashion. Once he was comfortable, a bite block was placed into his oropharynx. . The endoscope was advanced to the esophagus, stomach, and second and third portion of the duodenum and slowly removed. The esophagus once again showed grade 2-3 varices, three columns in the distal esophagus with some slight red Vimal sign, but no overt bleeding, fibrin clot or active bleeding sites. The stomach was entered and found to be normal in forward and retroflexed views except for grade 3 portal gastropathy. The duodenum was normal with yellow bile and the scope was then retroflexed with full distention of the stomach. No gastric varices were seen. The scope was removed. A ligator band kit was applied and three bands were placed to the three columns of distal varices with ablation of these. No bleeding ensued. The scope was removed. The patient tolerated the procedure well with no complications. Job ID: [id number]
[2018-05-02] MEDS: Sodium Chloride 0.9% 1,000 ML IV SCH ×2 (01:45→15:45)
[2018-05-02] MEDS: Pantoprazole 80 MG in Sodium Chloride 0.9% 100 ML IVPB SCH (01:45)
[2018-05-02 05:11] LABS: Anion Gap 12 mmol/L (10-20); BUN (Urea Nitrogen) 48 mg/dL (8.4-25.7); Calc. Creatinine Clearance 65 mL/min (70-130); Calcium 7.3 mg/dL (7.8-10.44); Carbon Dioxide 24 mmol/L (23-31); Chloride 102 mmol/L (98-107); Estimated GFR-MDRD 54; Glucose 140 mg/dL (80-115); Potassium 4.4 mmol/L (3.5-5.1); Sodium 134 mmol/L (136-145)
[2018-05-02 05:35] LABS: Hemoglobin 8.2 g/dL (14.0-18.0); Hypochromia SLIGHT = 6-15 cells (100X) (0-5/hpf); MDiff Complete? YES; Mean Corpuscular HGB CONC 32.2 g/dL (32.0-36.0); Mean Corpuscular Volume 90.1 fL (78.0-98.0); Mean Platelet Volume 7.7 fL (7.4-10.4); Monocytes 6 % (0-10); Neutrophil 94 % (42-75); Nucleated RBC 1 % (0); Platelet Count 309 thou/uL (130-400); Platelet Morphology Comment Appears Adequate; RBC Distribution Width 15.1 % (11.5-14.5); Red Blood Cell (RBC) Count 2.83 mill/uL (4.70-6.10); White Blood Cell (WBC) Count 9.7 thou/uL (4.8-10.8)
[2018-05-02] MEDS: Levothyroxine Sodium 50 MCG TAB PO SCH (05:56)
--- NOTE | 2018-05-02 09:50 | PRG ---
DATE OF SERVICE: 05/02/2018 SUBJECTIVE: He was banded yesterday. He feels better. OBJECTIVE: VITAL SIGNS: Temperature 98.1, pulse 72, respirations 16, O2 saturation 100% on room air, and blood pressure 96/55. HEENT: Unremarkable. NECK: No JVD. LUNGS: Clear. CARDIAC: S1 and S2, regular. ABDOMEN: Distended. LABORATORY DATA: White blood cell count 9.7, hematocrit 25.5, platelet count 309. Sodium 134, potassium 4.4, BUN 48, creatinine 1.3, and glucose 140. ASSESSMENT: 1. Upper gastrointestinal bleeding, likely variceal. 2. Cirrhosis. 3. Ascites. PLAN: The patient is being transferred to the medical floor. There are no further pulmonary issues. We will sign off. Please recall further assistance if needed. Job ID: [id number]
--- NOTE | 2018-05-02 11:32 | PRG ---
DATE OF SERVICE: 05/02/2018 SUBJECTIVE: This is a 62-year-old gentleman being seen for acute kidney injury. The patient denies any nausea, vomiting, or chest pain. OBJECTIVE: CONSTITUTIONAL: The patient is awake and alert. VITAL SIGNS: Afebrile, pulse 72, breathing 16, and blood pressure 103/68. GENERAL APPEARANCE AND MENTAL STATUS: Fair. HEAD/NECK: Normocephalic. Atraumatic. EYES: EOMI. No deformity. EARS: Clear. No ulcers. NOSE: Intact. No lesions. MOUTH: Clear. No discharge. THROAT: Clear. No exudate. LUNGS: Clear. No crackles. CARDIAC: S1, S2. No rub. ABDOMEN: Benign. Bowel sounds positive. GENITALIA/RECTUM: Bruce absent. BACK/EXTREMITIES: Edema 0+. NEUROLOGICAL: Alert and motor intact. SKIN: LYMPHATICS: LABORATORY DATA: Labs show hemoglobin 8.2. Potassium 4.4. ASSESSMENT AND PLAN: 1. Chronic kidney disease stage 3, stable. 2. Hyperkalemia, stable. 3. Metabolic acidosis, stable. No indication for dialysis. I will sign off on this patient. Please reconsult as needed. Prognosis is extremely poor. Job ID: [id number]
[2018-05-02] MEDS: Morphine IR 10 MG/5 ML UDCUP PO PRN ×2 (13:48→19:54)
--- NOTE | 2018-05-02 17:36 | CON ---
DATE OF CONSULTATION: REASON FOR CONSULT: Liver cancer. HISTORY OF PRESENT ILLNESS: Mr. Carmen is a 62-year-old gentleman, who was initially seen in the hospital in late March. He was diagnosed with stage IV hepatocellular carcinoma with heavy tumor burden. He had a PleurX catheter placed and went home on hospice. He ended up firing hospice in April and presented to our clinic on Monday, the to discuss treatment. On Monday, his hemoglobin was 5.1. He was brought to the emergency room for evaluation. Dr. Fuchs saw the patient and performed esophageal banding. He also had acute kidney injury, which has slowly improved over the course of the hospital stay. Dr. Washington has seen the patient. The patient has slowly improved over the last several days and we are asked to see the patient regarding treatment options. History was obtained from medical record and from the patient and sisters at the bedside. PAST MEDICAL HISTORY: 1. Stage IV hepatocellular carcinoma with solitary lung met. 2. Alcohol abuse. 3. Hepatitis C. 4. Cirrhosis. 5. Opioid abuse. 6. Hypothyroidism. PAST SURGICAL HISTORY: 1. Hernia repair. 2. Salivary gland removal. 3. Umbilical hernia. ALLERGIES: NO KNOWN DRUG ALLERGIES. HOME MEDICATIONS: 1. B12 monthly. 2. Duragesic patch 75 mcg. 3. Lasix 20 daily. 4. Levothyroxine 50 mcg daily. 5. Lorazepam p.r.n. 6. Morphine 10 mg daily. 7. [place] p.r.n. 8. Spironolactone daily. FAMILY HISTORY: Negative for cancer. SOCIAL HISTORY: Current pack, pack and a half per day smoker. Drank beer for most of his life. Last drink was one or two months ago. He is single, lives with his sister. REVIEW OF SYSTEMS: A 10-point review of systems is negative except for abdominal pain and distention. PHYSICAL EXAMINATION: VITAL SIGNS: Temperature is 98.1, pulse is 72, respiratory rate 16, BP is 96/55. He is 98% on room air. GENERAL: This is a chronically ill-appearing male, in no acute distress. HEENT: Normocephalic, atraumatic. Pupils equal and reactive to light. NECK: Supple. CV: Regular rate and rhythm. LUNGS: Clear. ABDOMEN: Distended with a PleurX cath in place. EXTREMITIES: No clubbing, cyanosis, or edema. SKIN: No rash. HEMATOLOGIC: No petechiae or purpura. NEUROLOGIC: Nonfocal. PSYCH: The patient is alert, oriented and appropriate. PERTINENT LABS AND X-RAYS: Current WBCs are 9.7, hemoglobin 8.2, hematocrit 25.5, platelet count is 309,000. PT 16.3, INR is 1.3, PTT 43.5. Sodium is 132, potassium 4.4, chloride 102, CO2 is 24, BUN is 48, creatinine 1.34, calcium is 7.3, bilirubin is 0.7, AST is 827, ALT is 1583, alkaline phosphatase is 1617, serum total protein is 5.2, albumin 1.8, globulin 3.4. Last AFP was 27. Abdomen and pelvis CT on admission showed worsening of his hepatocellular carcinoma. There was a small amount of ascites noted. He has splenomegaly. ASSESSMENT: 1. Stage IV hepatocellular carcinoma. 2. Gastrointestinal bleed with status post esophageal varices banding. 3. Cirrhosis with ascites. DISCUSSION: Case was discussed with Dr. Joshua. The patient is not a candidate for oral lenvatinib. He may be a candidate for outpatient immunotherapy with Opdivo. The patient is insistent that he can come for treatment. He again declined hospice. He has a followup appointment in about a week and a half to discuss treatment with Dr. Joshua. Thank you for the consult. Job ID: [id number]
--- NOTE | 2018-05-02 17:59 | PRG ---
DATE OF SERVICE: 05/02/2018 SUBJECTIVE: Events are noted and chart reviewed. The patient is wanting to try a more substantial diet in the morning. He has had no nausea or vomiting. OBJECTIVE: VITAL SIGNS: Temperature 98.5, pulse 79, respiratory rate 16, and blood pressure 109/68. CHEST: Clear. CARDIOVASCULAR: Regular rate and rhythm. ABDOMEN: Soft, diffusely tender. Positive fluid wave is noted. A liter of fluid was removed. LABORATORY DATA: Shows a hemoglobin 8.2, hematocrit 25.5 with a platelet count of 309. Chemistries significant for sodium of 134, BUN 48, creatinine 1.34, glucose 140. ASSESSMENT: 1. Metastatic hepatocellular carcinoma. 2. Cirrhosis. 3. Ascites. 4. GI bleed-status post esophagogastroduodenoscopy and esophageal variceal banding. RECOMMENDATIONS: 1. Agree with Hospice Care. 2. Drain fluid p.r.n. for symptomatic abdominal distention. 3. Advanced diet when the patient is ready. 4. Discontinue octreotide in 24 to 48 hours. 5. Change Protonix to p.o. Job ID: [id number]
[2018-05-02] MEDS ORDERED: fentaNYL 75 mcg/hour Patch TD SCH (18:00)
[2018-05-02] MEDS: cefTRIAXone\\ROCEPHIN 1 GM in Sodium Chloride 0.9% 100 ML IVPB SCH (18:26)
[2018-05-03] MEDS: Sodium Chloride 0.9% 1,000 ML IV SCH ×2 (01:49→18:05)
[2018-05-03] MEDS: Morphine IR 10 MG/5 ML UDCUP PO PRN ×5 (01:49→21:56)
[2018-05-03] MEDS: Levothyroxine Sodium 50 MCG TAB PO SCH (06:30)
[2018-05-03 07:35] LABS: Hemoglobin 8.6 g/dL (14.0-18.0); Mean Corpuscular HGB CONC 30.9 g/dL (32.0-36.0); Mean Corpuscular Hemoglobin 28.2 pg (27.0-31.0); Mean Corpuscular Volume 91.3 fL (78.0-98.0); Mean Platelet Volume 7.9 fL (7.4-10.4); Platelet Count 277 thou/uL (130-400); RBC Distribution Width 15.3 % (11.5-14.5); Red Blood Cell (RBC) Count 3.04 mill/uL (4.70-6.10); White Blood Cell (WBC) Count 10.8 thou/uL (4.8-10.8)
[2018-05-03 07:51] LABS: Anion Gap 12 mmol/L (10-20); BUN (Urea Nitrogen) 42 mg/dL (8.4-25.7); Calc. Creatinine Clearance 81 mL/min (70-130); Calcium 7.4 mg/dL (7.8-10.44); Carbon Dioxide 22 mmol/L (23-31); Chloride 102 mmol/L (98-107); Estimated GFR-MDRD 68; Glucose 118 mg/dL (80-115); Potassium 3.9 mmol/L (3.5-5.1); Sodium 132 mmol/L (136-145)
[2018-05-03 08:06] LABS: Band 7 % (5-11); Eosinophils 1 % (0-10); Hypochromia SLIGHT = 6-15 cells (100X) (0-5/hpf); Lymphocytes 9 % (21-51); MDiff Complete? YES; Monocytes 8 % (0-10); Myelocyte 2 % (0-0); Neutrophil 71 % (42-75); Platelet Morphology Comment Appears Adequate; Polychromasia MODERATE = 3-4 cells (100X) (0-2/hpf); Reactive Lymphocytes 2 % (0-10)
--- NOTE | 2018-05-03 10:28 | PRG ---
DATE OF SERVICE: 05/03/2018 SUBJECTIVE: The patient is not eating well because of his abdominal distention. He has had no nausea or vomiting. He is drinking fluids well. He is having bowel movements. OBJECTIVE: VITAL SIGNS: Temperature 98.5, pulse 80, respiratory rate 12, and blood pressure 94/53. HEENT: Unremarkable. NECK: Supple. CHEST: Clear. CARDIOVASCULAR: Regular rate and rhythm. ABDOMEN: Protuberant and distended, somewhat taut, diffusely tender. EXTREMITIES: Show minimal edema. LABORATORY DATA: Shows a white blood cell count 10.8, hemoglobin 8.6, hematocrit 27.8. Chemistry shows sodium 132, BUN 42, creatinine 1.10, and glucose 118. ASSESSMENT: 1. Metastatic hepatocellular carcinoma. 2. Symptomatic ascites. 3. Cirrhosis. RECOMMENDATION: We will go ahead and remove some fluid. This may help him tolerate oral intake. Also, he seems to be tolerating liquids well. At this point, we could discontinue his IV saline and this may alleviate recurrence of his ascites. Job ID: [id number]
[2018-05-03 12:18] LABS: Hep C PCR-Quant 170 IU/mL (.)
[2018-05-03 13:50] LABS: ALT (SGPT) 1124 U/L (8-55); AST (SGOT) 310 U/L (5-34); Albumin 1.8 g/dL (3.4-4.8); Alkaline Phosphatase 2060 U/L (40-150); Anion Gap 15 mmol/L (10-20); BUN (Urea Nitrogen) 40 mg/dL (8.4-25.7); Bilirubin, Total 1.1 mg/dL (0.2-1.2); Calc. Creatinine Clearance 84 mL/min (70-130); Calcium 7.4 mg/dL (7.8-10.44); Carbon Dioxide 18 mmol/L (23-31); Chloride 102 mmol/L (98-107); Estimated GFR-MDRD 71; Globulin 3.7 g/dL (2.4-3.5); Glucose 121 mg/dL (80-115); Protein, Total 5.5 g/dL (5.8-8.1); Sodium 131 mmol/L (136-145)
[2018-05-03 16:02] LABS: Body Fluid Source Ascites Body Fluid
[2018-05-03 16:03] LABS: BF Color Colorless; BF RBC Count - Manual 105 /cumm; BF WBC/Nonhematics Ct. - Manua 185 /cumm; Clarity Clear (Clear); Tube # EDTA
[2018-05-03 16:11] LABS: BF Segmented Neutrophils 25 %; Cell Count Non Hematic 14 %; Lymphocytes 61 %
[2018-05-03] MEDS: cefTRIAXone\\ROCEPHIN 1 GM in Sodium Chloride 0.9% 100 ML IVPB SCH (18:00)
[2018-05-04] MEDS: Morphine IR 10 MG/5 ML UDCUP PO PRN ×7 (01:25→21:10)
[2018-05-04] MEDS: Levothyroxine Sodium 50 MCG TAB PO SCH (04:25)
[2018-05-04] MEDS: Sodium Chloride 0.9% 1,000 ML IV SCH (08:38)
--- NOTE | 2018-05-04 15:34 | PRG ---
DATE OF SERVICE: 05/04/2018 SUBJECTIVE: The patient says he feels better after having his fluid drained. He is tolerating his diet. OBJECTIVE: VITAL SIGNS: Temperature 98.2, pulse 82, respiratory rate 18, blood pressure 96/55. CHEST: Clear. CARDIOVASCULAR: Regular rate and rhythm. ABDOMEN: Soft. Diffusely tender with hepatomegaly. LABORATORY DATA: No new laboratories done today. ASSESSMENT: 1. Hepatocellular carcinoma. 2. Ascites. 3. Cirrhosis. RECOMMENDATIONS: 1. Stable for discharge from GI standpoint. 2. Dr. Mcrae is covering, call if needed. Job ID: [id number]
[2018-05-04] MEDS: fentaNYL 100 mcg/hour Patch TD SCH (16:58)
[2018-05-04] MEDS: cefTRIAXone\\ROCEPHIN 1 GM in Sodium Chloride 0.9% 100 ML IVPB SCH (17:50)
[2018-05-05] MEDS: Morphine IR 10 MG/5 ML UDCUP PO PRN ×4 (01:40→16:02)
[2018-05-05] MEDS: Sodium Chloride 0.9% 1,000 ML IV SCH ×3 (01:43→20:33)
[2018-05-05] MEDS: Levothyroxine Sodium 50 MCG TAB PO SCH (06:32)
[2018-05-05 09:44] LABS: INR-International Normal Ratio 1.4; PTT 48.5 SEC (22.9-36.1); Prothrombin Time 17.1 SEC (12.0-14.7)
[2018-05-05 10:06] LABS: ALT (SGPT) 577 U/L (8-55); AST (SGOT) 121 U/L (5-34); Albumin 1.7 g/dL (3.4-4.8); Alkaline Phosphatase 1742 U/L (40-150); Anion Gap 13 mmol/L (10-20); BUN (Urea Nitrogen) 39 mg/dL (8.4-25.7); Calc. Creatinine Clearance 79 mL/min (70-130); Calcium 7.5 mg/dL (7.8-10.44); Carbon Dioxide 20 mmol/L (23-31); Chloride 101 mmol/L (98-107); Estimated GFR-MDRD 66; Globulin 3.9 g/dL (2.4-3.5); Glucose 111 mg/dL (80-115); Potassium 3.8 mmol/L (3.5-5.1); Protein, Total 5.6 g/dL (5.8-8.1); Sodium 130 mmol/L (136-145)
--- NOTE | 2018-05-05 13:06 | EKG ---
Test Reason : Blood Pressure : / mmHG Vent. Rate : 080 BPM Atrial Rate : 080 BPM P-R Int : 188 ms QRS Dur : 096 ms QT Int : 364 ms P-R-T Axes : 071 -19 057 degrees QTc Int : 419 ms Normal sinus rhythm Normal ECG Confirmed by RACHELLE MEDINA ([id number]), telegraph editor REBEL RIVERA ([id number]) on 05/05/2018 1:06:36 PM Referred By: Confirmed By:RACHELLE MEDINA
[2018-05-05] MEDS: cefTRIAXone\\ROCEPHIN 1 GM in Sodium Chloride 0.9% 100 ML IVPB SCH (18:38)
[2018-05-06] MEDS: Sodium Chloride 0.9% 1,000 ML IV SCH ×2 (00:11→11:09)
[2018-05-06] MEDS: Morphine IR 10 MG/5 ML UDCUP PO PRN ×4 (03:08→21:26)
[2018-05-06] MEDS: Levothyroxine Sodium 50 MCG TAB PO SCH (06:59)
[2018-05-06] MEDS ORDERED: Megestrol Acetate 800 MG/20 ML UDCUP PO SCH (16:30)
[2018-05-06] MEDS: cefTRIAXone\\ROCEPHIN 1 GM in Sodium Chloride 0.9% 100 ML IVPB SCH (17:59)
[2018-05-06] MEDS: AMOXicillin 250 MG CAP PO SCH (21:21)
[2018-05-06] MEDS: Megestrol Acetate 800 MG/20 ML UDCUP PO SCH (21:22)
[2018-05-07] MEDS: Morphine IR 10 MG/5 ML UDCUP PO PRN ×4 (05:51→19:43)
[2018-05-07] MEDS: Levothyroxine Sodium 50 MCG TAB PO SCH (05:51)
[2018-05-07 06:05] LABS: #Eosinphils 0.1 thou/uL (0.0-0.7); #Lymphocytes 0.9 thou/uL (1.20-3.40); %Basophils 0.3 % (0.0-1.0); %Eosinophils 0.6 % (0.0-10.0); %Lymphocytes 6.2 % (21.0-51.0); %Monocytes 6.6 % (0.0-10.0); %Neutrophils 86.4 % (42.0-75.0); Hemoglobin 10.1 g/dL (14.0-18.0); Mean Corpuscular Hemoglobin 28.7 pg (27.0-31.0); Mean Corpuscular Volume 92.6 fL (78.0-98.0); Mean Platelet Volume 8.2 fL (7.4-10.4); Platelet Count 448 thou/uL (130-400); Red Blood Cell (RBC) Count 3.52 mill/uL (4.70-6.10)
[2018-05-07 06:11] LABS: INR-International Normal Ratio 1.4; Prothrombin Time 16.9 SEC (12.0-14.7)
[2018-05-07 06:30] LABS: ALT (SGPT) 329 U/L (8-55); AST (SGOT) 95 U/L (5-34); Albumin 1.7 g/dL (3.4-4.8); Alkaline Phosphatase 1543 U/L (40-150); Anion Gap 14 mmol/L (10-20); BUN (Urea Nitrogen) 44 mg/dL (8.4-25.7); Bilirubin, Direct 0.6 mg/dL (0.1-0.3); Bilirubin, Total 0.9 mg/dL (0.2-1.2); Calc. Creatinine Clearance 75 mL/min (70-130); Calcium 7.6 mg/dL (7.8-10.44); Carbon Dioxide 19 mmol/L (23-31); Chloride 100 mmol/L (98-107); Estimated GFR-MDRD 62; Glucose 109 mg/dL (80-115); Protein, Total 5.7 g/dL (5.8-8.1); Sodium 129 mmol/L (136-145)
[2018-05-07] MEDS: AMOXicillin 250 MG CAP PO SCH ×3 (10:15→20:35)
[2018-05-07] MEDS: Megestrol Acetate 800 MG/20 ML UDCUP PO SCH ×3 (10:15→20:35)
[2018-05-07 14:12] VITALS: BMI 25.2
[2018-05-07] MEDS: fentaNYL 100 mcg/hour Patch TD SCH (15:07)
[2018-05-07] MEDS: Sodium Chloride 0.9% 1,000 ML IV SCH (16:42)
--- NOTE | 2018-05-07 18:36 | PRG ---
DATE OF SERVICE: 05/07/2018 SUBJECTIVE: The patient is without change. Presently, the plan is for him to go home tomorrow possibly. OBJECTIVE: VITAL SIGNS: Temperature 97.7, pulse 80, respiratory rate 18, and blood pressure 88/51. CHEST: Clear. CARDIOVASCULAR: Regular rate and rhythm. ABDOMEN: Soft, diffusely tender with hepatomegaly. LABORATORY DATA: Laboratory shows a white blood cell count of 15, hemoglobin of 10, hematocrit of 32.5. Laboratory shows sodium of 129, CO2 of 19, BUN 44. Total bilirubin 0.9, AST 95, ALT of 329, alkaline phosphatase 1543. ASSESSMENT: 1. Metastatic hepatocellular carcinoma. 2. Ascites-this appears to be small volume ascites. 3. Cirrhosis. RECOMMENDATIONS: 1. Agree with discharge tomorrow. 2. Would encourage the patient to become hospice. 3. We will sign off. Job ID: [id number]
[2018-05-07] MEDS: cefTRIAXone\\ROCEPHIN 1 GM in Sodium Chloride 0.9% 100 ML IVPB SCH (18:47)
[2018-05-08] MEDS: Sodium Chloride 0.9% 1,000 ML IV SCH ×2 (01:49→17:39)
[2018-05-08] MEDS: Morphine IR 10 MG/5 ML UDCUP PO PRN ×3 (05:33→21:11)
[2018-05-08] MEDS: Levothyroxine Sodium 50 MCG TAB PO SCH (05:34)
[2018-05-08] MEDS: AMOXicillin 250 MG CAP PO SCH ×3 (10:10→21:08)
[2018-05-08] MEDS: Megestrol Acetate 800 MG/20 ML UDCUP PO SCH ×3 (10:11→21:10)
[2018-05-09] MEDS: Sodium Chloride 0.9% 1,000 ML IV SCH (05:45)
[2018-05-09] MEDS: Levothyroxine Sodium 50 MCG TAB PO SCH (05:48)
[2018-05-09] MEDS: Morphine IR 10 MG/5 ML UDCUP PO PRN ×2 (05:48→09:57)
[2018-05-09] MEDS: Megestrol Acetate 800 MG/20 ML UDCUP PO SCH (09:44)
[2018-05-09] MEDS: AMOXicillin 250 MG CAP PO SCH (09:45)
[2018-05-09 12:18] VITALS: BP 107/68; TEMP 97.8
--- NOTE | 2018-05-10 15:40 | DIS ---
DATE OF ADMISSION: 04/30/2018 DATE OF DISCHARGE: 05/09/2018 CHIEF COMPLAINT ON ADMISSION: Hyperkalemia with anemia due to vomiting blood. HISTORY OF PRESENT ILLNESS: The history of present illness and physical exam were dictated and I will resume from there with hospital course. HOSPITAL COURSE: The patient's initial hemoglobin was 5 and hematocrit 16 when entering the hospital, so the first goal was to transfuse him in dialysis. Dr. Washington was consulted concerning his dialysis care and saw him that day, as was Dr. Corbin from a GI standpoint to stop the active GI bleed. While initially he was a DNR prior to arriving at the hospital, he has since indicated that he wants everything done at this point. Over the next 24 hours, he was found to arouse quite easily. By 05/01/2018, his pain was well controlled. Vital signs were stable. Comfort measures were maintained at this date, as well as lactulose and cutting back on his opiates. By 05/02/2018, he was much better and was wanting to get treatment from Dr. Joshua concerning his liver. His potassium level was coming down appropriately and he was able to be transferred to Medical at this time. By 05/03/2018, he was willing to do outpatient IV therapy from home with home health. His exam was stabilizing and we began process of discharging at this point and at this point, he will continue to drain his own ascites and follow up with Dr. Joshua as an outpatient. Med/Onc saw him on 05/03/2018 in consultation. The patient was declining hospice wanting to treat his ascites, and his GI bleeding had resolved and they agreed he was a candidate for home discharge at this time. His potassium level is now down to 3.9. By 05/04, he was alert and a lot of congestion. Breath sounds were at baseline, continued arrangements were made for home health discharge. By 05/05, he was better, ascites had been drained off. He was much more comfortable. Arrangements were made for a hospital bed with trapeze at home as well as a regular wheelchair for transportation once he was discharged home. By 05/06, he drained out 3 bottles of ascites. He felt much more comfortable. He was very anorexic and cachectic. So Megace was ordered to help stimulate his appetite. By 05/07, he was resting well. Vital signs were stable. Chest was at baseline, clear. Anorexia had not yet improved, with a nutritional consult a trail of Megace was begun. By , the patient was very hungry and was refusing vital signs. His abdomen was less tender and we were still waiting for discharge arrangements to be complete. By 05/09, he was finally able to be discharged home. He has had a good night. He was very anxious about having enough vacuum bottles to pull off the ascites once he got home and he was reassured that this was in place with home health. His cirrhosis and ascites had improved. His anorexia had improved and he would follow up with Dr. Joshua the next week and Dr. Rowe the next week as well. DISCHARGE MEDICATIONS: Medications at the time of discharge were 1. Amoxacillin. 2. Megace. 3. Fentanyl. 4. Roxanol. DISCHARGE DIAGNOSES: 1. Hepatocellular carcinoma with malignant ascites. 2. Hyperkalemia, resolved. 3. Anemia, improved post transfusion. 4. Gastrointestinal bleed was undetermined at the time of discharge. 5. Grade 3 varices banded at the time of endoscopy per Dr. Fuchs, with no active bleeding site noted. This was done on 05/08/2018. 6. Acute kidney injury and oliguria, corrected at dialysis. The acute kidney failure was described as acute on chronic renal failure. 7. Cirrhosis. TIME SPENT: The time required to review the chart, examine the patient, answer the patient and his sister's questions completely, then return to the chart to repair the paperwork as well as write prescriptions and reconcile all his medications came to 45 minutes. DISCHARGE DISPOSITION: He is discharged currently as a full code to follow up with home health and he would live with his sister. Job ID: [id number] [facility]
== END 2018-05-09 12:56 | disposition home health service (06) | DRG 441 ==
LOC: ERS 16:50 → IMCU/EMU 23:58 → SURG A 05-02 12:20
PROVIDERS: ADMIT Specialist; ATTEND Specialist
PROC: 30233N1 Transfusion of Nonautologous Red Blood Cells into Peripheral Vein, Percutaneous Approach (ICD-10-PCS; principal; 2018-04-30)
PROC: 5A1D70Z Performance of Urinary Filtration, Intermittent, Less than 6 Hours Per Day (ICD-10-PCS; 2018-05-01)
PROC: 06L38CZ Occlusion of Esophageal Vein with Extraluminal Device, Via Natural or Artificial Opening Endoscopic (ICD-10-PCS; 2018-05-08)
DX: B18.2 Chronic viral hepatitis C (principal); K76.7 Hepatorenal syndrome; I85.11 Secondary esophageal varices with bleeding; K72.00 Acute and subacute hepatic failure without coma; K92.0 Hematemesis; C22.0 Liver cell carcinoma; R18.0 Malignant ascites; N17.9 Acute kidney failure, unspecified; D62 Acute posthemorrhagic anemia; E87.1 Hypo-osmolality and hyponatremia; K76.6 Portal hypertension; E87.2 Acidosis; C78.00 Secondary malignant neoplasm of unspecified lung; K74.69 Other cirrhosis of liver; N18.3 Chronic kidney disease, stage 3 (moderate); K31.89 Other diseases of stomach and duodenum; E87.5 Hyperkalemia; Z66 Do not resuscitate; E03.9 Hypothyroidism, unspecified; F10.21 Alcohol dependence, in remission
CPT/HCPCS: 36415; 36430; 36556; 74177; 80048; 80053; 80076; 82248; 83605; 83615; 83690; 83735; 84100; 84484; 84550; 85025; 85060; 85610; 85730; 86704; 86706; 86803; 86850; 86870; 86900; 86901; 86905; 86922; 87070; 87077; 87186; 87205; 87340; 87522; 89051; 90935; 93005; 94640; 96360; 96365; 96366; 96367; 96375; 96376; C9113; G0257; J0696; J1642; J1644; J1815; J2001; J2270; J2354; J2405; J7050; J7611; J7620; P9016; Q9967

== ENCOUNTER 2018-06-01 03:45 | Inpatient (IN) | payer BC, OTHER ==
[2018-06-01 04:59] LABS: Platelet Count 1092 thou/uL (130-400)
[2018-06-01 05:00] LABS: ALT (SGPT) 67 U/L (8-55); AST (SGOT) 97 U/L (5-34); Albumin 2.1 g/dL (3.4-4.8); Alkaline Phosphatase 1274 U/L (40-150); Anion Gap 19 mmol/L (10-20); BUN (Urea Nitrogen) 53 mg/dL (8.4-25.7); Bilirubin, Total 1.2 mg/dL (0.2-1.2); Calc. Creatinine Clearance 0 mL/min (70-130); Calcium 8.2 mg/dL (7.8-10.44); Carbon Dioxide 14 mmol/L (23-31); Chloride 97 mmol/L (98-107); Estimated GFR-MDRD 33; Globulin 4.4 g/dL (2.4-3.5); Glucose 121 mg/dL (80-115); Protein, Total 6.5 g/dL (5.8-8.1); Sodium 123 mmol/L (136-145)
[2018-06-01 05:02] LABS: Potassium 6.6 mmol/L (3.5-5.1)
[2018-06-01 05:22] LABS: #Lymphocytes 0.6 thou/uL (1.20-3.40); #Monocytes 0.4 thou/uL (0.11-0.59); #Neutrophils 8.4 thou/uL (1.40-6.50); %Basophils 0.3 % (0.0-1.0); %Eosinophils 0.5 % (0.0-10.0); %Monocytes 4.6 % (0.0-10.0); %Neutrophils 88.6 % (42.0-75.0); Anisocytosis SLIGHT = 6-15 cells (100X) (0-5/hpf); MDiff Complete? YES; Mean Corpuscular HGB CONC 30.7 g/dL (32.0-36.0); Mean Corpuscular Hemoglobin 28.4 pg (27.0-31.0); Mean Corpuscular Volume 92.5 fL (78.0-98.0); Mean Platelet Volume 6.4 fL (7.4-10.4); Platelet Morphology Comment Appears Increased; RBC Distribution Width 16.7 % (11.5-14.5); Red Blood Cell (RBC) Count 4.23 mill/uL (4.70-6.10); White Blood Cell (WBC) Count 9.4 thou/uL (4.8-10.8)
[2018-06-01] MEDS ORDERED: Piperacillin/Tazobactam 4.5 GM VIAL ONE (05:37)
[2018-06-01] MEDS ORDERED: Norepinephrine 8 MG/0.9% NS 250 ML ONE (06:11)
[2018-06-01] MEDS ORDERED: Fentanyl 100 MCG/2 ML VIAL ONE (06:55)
[2018-06-01] MEDS ORDERED: Lorazepam 1 MG TAB PO PRN (08:12)
[2018-06-01] MEDS ORDERED: Acetaminophen 325 MG TAB PO PRN (08:14)
[2018-06-01] MEDS ORDERED: fentaNYL 100 mcg/hour Patch TD SCH (08:15)
[2018-06-01 08:48] LABS: BF Color Red; Body Fluid Source Peritoneal Fluid; Clarity Cloudy/Turbid (Clear); Tube # EDTA; WBC Background Count 0.02
[2018-06-01 08:49] LABS: RBC Background Count 0.001; RBC Count-Automated 133000 /cumm; WBC/NonHematic-Auto 1630 /cumm
[2018-06-01] MEDS: Morphine IR 10 MG/5 ML UDCUP PO PRN ×2 (09:21→21:23)
[2018-06-01 09:32] LABS: Lactic Acid 3.9 mmol/L (0.5-2.2)
[2018-06-01 09:47] LABS: HBSAB Concentration 1.46 mIU/mL; HBSAg Index 0.21 S/CO (0-0.99); Hep B Surf AB Non-Reactive (NonReactive); Hep B Surf Ag Non-Reactive S/CO (NonReactive)
--- NOTE | 2018-06-01 09:52 | CON ---
DATE OF CONSULTATION: REASON FOR CONSULTATION: Hyperkalemia. HISTORY OF PRESENT ILLNESS: This is a 62-year-old gentleman, who presented to the hospital after noting abdominal distention. The patient has a history of liver cancer and cirrhosis. The patient's potassium was 6.6. The patient can give no further history except complains of abdominal distention PAST MEDICAL HISTORY: Significant for cirrhosis, liver cancer, history of hernia, history of dialysis. SOCIAL HISTORY: FAMILY HISTORY: Negative for ESRD. ALLERGIES: REVIEWED. HOME MEDICATIONS: List reviewed. REVIEW OF SYSTEMS: 15-point review of system was performed, negative except for what was noted above. GENERAL: HEAD: NECK: No swelling or lumps. NOSE: No epistaxis or discharge. EYES: No diplopia or pain. RESPIRATORY: CARDIOVASCULAR: GASTROINTESTINAL: /ASSEMBLER INSTALLER GENERAL: MUSCULOSKELETAL: No joint pain. NEUROPSYCHIATIC SYSTEMS: No suicidal ideation. No ideation. SKIN: Denies any rash or ulcer. CONSTITUTIONAL: No fever or chills. PHYSICAL EXAMINATION: CONSTITUTIONAL: The patient is awake and alert. VITAL SIGNS: Afebrile, pulse 88, breathing 16, blood pressure 62/43. GENERAL APPEARANCE AND MENTAL STATUS: Fair. HEAD/NECK: Normocephalic. Atraumatic. EYES: EOMI. No deformity. EARS: Clear. No ulcers. NOSE: Intact. No lesions. MOUTH: Clear. No discharge. THROAT: Clear. No exudate. LUNGS: Clear. No crackles. CARDIAC: S1, S2. No rub. ABDOMEN: Bowel sounds positive. The patient has abdominal distention. GENITALIA/RECTUM: Bruce absent. BACK/EXTREMITIES: Edema 0+. NEUROLOGICAL: Alert and motor intact. SKIN: LYMPHATICS: LABORATORY DATA: Potassium 6.6. ASSESSMENT AND PLAN: 1. Acute kidney injury with chronic kidney disease due to hypotension, sepsis, plan dialysis. Prognosis is poor recommend hospice 2. Metabolic acidosis, start bicarbonate. 3. Hyperkalemia, plan dialysis. Overall prognosis is poor. Job ID: [id number] [facility]
[2018-06-01] MEDS ORDERED: Heparin 1,000 UNITS/ML VIAL ONE (11:11)
--- NOTE | 2018-06-01 11:23 | HP ---
CHIEF COMPLAINT: Abdominal pain. HISTORY OF PRESENT ILLNESS: The patient is a 62-year-old with known hepatocellular carcinoma, who has been at home doing abdominal ascites taps up to 5 L per tap and has been doing so for over a month until he started to have significantly more pain than usual. He denies any fever, vomiting, or diarrhea. He was not short of breath, but he rated his pain at a 10/10 when coming in. In the emergency room , the ER doctor actually keith off some bloody fluid, it coagulated and he has significant peritoneal signs on evaluation. His lactate is over 5, and it turns out his potassium is 6.6. Nephrology has been consulted to dialyze him. The patient accepts the risks involved. Cultures and antibiotics have been started and we will get him dialyzed, get his potassium lowered, try to maintain his blood pressure, which is coming under 90 systolic. This is a complicated issue because he is chronically on a fentanyl patch for his constant abdominal pain, so the low blood pressure is possibly from the fentanyl and/or the acute sepsis from the peritonitis in his abdominal wall. PAST MEDICAL HISTORY: As mentioned previously, he has proven hepatocellular carcinoma. He is previously a hospital patient. He is a known cirrhotic with recurrent abdominal ascites requiring the placement of a catheter per Dr. Landaverde at last hospitalization. This provides the patient's ability to chronically remove fluid to the point where he is more comfortable. He came off hospice because he wishes [facility] with [facility] and has been told he is now stable after receiving such treatment. 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 PAST SURGICAL HISTORY: Includes the aforementioned placement of catheter per Dr. Landaverde for drainage of ascites, EGD per Dr. Wilson, bilateral hernia repairs, umbilical hernia repair, mesh placement in February of [address] Cervantes. PSYCHIATRIC HISTORY: His psychiatric history has been negative. SOCIAL HISTORY: He has been an qualified craft worker electrician. He is unmarried. He has 2 children. He smoked 2 packs per day for 46 years. He has been drinking a 6 pack of beer daily for the same number of years. ALLERGIES: NO KNOWN DRUG ALLERGIES. REVIEW OF SYSTEMS: At the time of admission, GENERAL: Weak, has chronic pain, but denies fever. EYES: Denies drainage, blurred vision, or pain. ENT: Denies sores, ulcers, drainage, or trouble swallowing. CARDIOVASCULAR: Denies chest pain or palpitations. RESPIRATORY: Has recurrent dyspnea with exacerbation of ascites, but aside from that, denies shortness of breath at this time or cough. GASTROINTESTINAL: Diffuse abdominal distention with tenderness, prompting ER visit. He does admit to getting some blood in his ascites drainage the last time he did it himself. GENITOURINARY: Denies dysuria or blood in urine or stool. SKIN: No rashes or lesions. NEUROLOGIC: He goes in and out of focus mentation associated with pain medication. Aside from that, denies headaches. PSYCHIATRIC: Negative for hallucinations or delusions. PHYSICAL EXAMINATION: VITAL SIGNS: At the time of admission, on arrival, blood pressure 87/65, pulse 89, respirations 16, and 95% on room air. Pain rated a scale of 10/10, which basically he always rates to maximize his medication for pain dosage. He has preferred to "be just knocked out." GENERAL: This is a cachectic male, who looks emaciated with Kwashiorkor abdominal type distention. HEENT: Sunken eyes. Wasted temporal membranes. TMs, nares, and pharynx are clear. Pupils are equal, round, and reactive to light. Extraocular muscles intact. Pharynx dry. NECK: Supple. Trachea midline. No mass. CHEST: With normal breath sounds bilaterally. HEART: Regular rate and rhythm. ABDOMEN: Distended, exquisitely tender with peritonitis and guarding and rebound. Hepatomegaly has been noted in the past. GENITOURINARY: Normal male. RECTAL: Deferred. EXTREMITIES: With muscular wasting in all extremities. SKIN: Poor turgor. No acute rashes or lesions. NEUROLOGIC: Cranial nerves are intact. Sensory exam is intact. Mental status is baseline, responsive and appropriate at this time. Did not test gait or cerebellar function. LABORATORY WORK: At admission showed WBCs 9.4, hemoglobin 12, and hematocrit 39.2 with platelets at 1092. Sodium 123, potassium 6.6, chloride 97, carbon dioxide 14, BUN 53, and creatinine 2.08. Lactic acid 5.3. AST 97, ALT 67, alkaline phosphatase 1274. ASSESSMENT: 1. Abdominal peritonitis. 2. Hyperkalemia. 3. Hepatocellular carcinoma. 4. Thrombocytosis. 5. Chronic obstructive pulmonary disease. PLAN: 1. Plan (begun by NICOLAS prior to my care) will be dialysis and Dr. Allen has been notified and is preparing the patient for dialysis. 2. We will continue symptomatic drainage of ascites for pain management. 3. Cultures taken, antibiotics begun for the abdominal infection. 4. Serial evaluation and pain management. Job ID: [id number] [facility]
[2018-06-01 11:28] LABS: BF Segmented Neutrophils 93 %; Cell Count Non Hematic 2 %; Lymphocytes 5 %
[2018-06-01] MEDS ORDERED: Morphine 4 MG/ML VIAL ONE ×2 (12:07→12:27)
[2018-06-01] MEDS ORDERED: Morphine 4 MG/ML VIAL SLOW IVP SCH ×2 (12:10→12:30)
[2018-06-01] MEDS: Piperacillin/Tazobactam 3.375 GM in Sodium Chloride 0.9% 100 ML IVPB SCH ×3 (14:01→20:51)
[2018-06-01] MEDS ORDERED: Naloxone HCl 0.4 mg/ml Vial IV PRN (14:46)
[2018-06-01] MEDS: HYDROmorphone 10 mg/100 ml CADD IV PRN (15:33)
[2018-06-01 16:55] LABS: Lavender RECEIVED; Red RECEIVED
--- NOTE | 2018-06-01 18:05 | CON ---
DATE OF CONSULTATION: HISTORY OF PRESENT ILLNESS: Mr. Carmen is a 62-year-old male. He has cirrhosis and end-stage hepatocellular carcinoma. He has an indwelling peritoneal catheter for drainage of ascites. He presented with complaints of 5 days of severe abdominal pain, much worse than his normal pain. He has had 2 L drained out of his abdomen this morning by the nurse. He says he feels better, but wants his pain completely gone. I had a long discussion with Dr. Wilson, who is taking care of him, leading up to this and he informed me that there are no therapeutic options for Mr. Carmen. The best option would be hospice in his opinion. I would agree that based on my interaction with him. I discussed end of life issues after I examined him and he informed me that he never wanted to be intubated. He is wanting to be kept comfortable. PAST MEDICAL HISTORY: Remarkable for; 1. Cirrhosis. 2. He has hepatocellular carcinoma. I reviewed his last abdominal CT, which shows massive and extensive tumor throughout both lobes of his liver. 3. History of esophageal varices. 4. History of hyperuricemia. 5. History of hypothyroidism. 6. History of heavy alcohol use in the past. 7. History of herniorrhaphies in the past. 8. History of mesh placement in the past. SOCIAL HISTORY: Two pack-a-day smoker, close to 100 pack years. He is a daily beer drinker. REVIEW OF SYSTEMS: Negative except for pain. Lung to be drained more, but I have explained to him that he is hypotensive on pressors and cannot have another paracentesis as it will aggravate his hypotension. PHYSICAL EXAMINATION: VITAL SIGNS: Heart rates in the 90s, blood pressure is 9058, respiratory rate is 20. HEENT: Pupils are equal. Sclerae are anicteric. NECK: Supple. He is very cachectic. LUNGS: Clear. HEART: Regular rhythm. No S3. ABDOMEN: Severely tender with diffuse guarding. EXTREMITIES: Without clubbing, cyanosis, or edema. LABORATORY DATA: White count 9.4, hemoglobin 12.0, platelets are . Sodium 123, potassium 6.6, chloride 97, bicarb 14, BUN 53, creatinine 2.08, alkaline phosphatase 1274, ALT 67, AST 97, and albumin is 2.1. IMPRESSION: End-stage hepatocellular carcinoma, likely with peritoneal extension given the bloody ascites, one of the bottles of ascites was sent for pathology, although we will not change our management. His sister is under the impression that there are therapeutic options, but I have explained to him that I would be surprised if he survives this admission and that there are no therapeutic options. Repeated taps of his abdomen are not helpful and just increase his likelihood of getting peritonitis, which he may now have. I did get the results of the Gram stain on the fluid from early this morning back and there were no organisms seen on the Gram-stain. Last admission, he had enterococcus in his peritoneal fluid, so I have added vancomycin for now. Ongoing dialysis is a bad idea in this gentleman. [facility]: [id number] [facility]
[2018-06-01] MEDS: Norepinephrine 8 MG/250 ML BAG IVPB PRN (20:49)
[2018-06-01] MEDS: Vancomycin HCl 1 GM in Premix Bag 1 BAG IVPB SCH (20:52)
[2018-06-02] MEDS: Piperacillin/Tazobactam 3.375 GM in Sodium Chloride 0.9% 100 ML IVPB SCH ×4 (02:27→20:30)
[2018-06-02 05:30] LABS: #Basophils 0.1 thou/uL (0.0-0.2); #Lymphocytes 0.8 thou/uL (1.20-3.40); #Monocytes 0.9 thou/uL (0.11-0.59); #Neutrophils 10.1 thou/uL (1.40-6.50); %Basophils 0.5 % (0.0-1.0); %Eosinophils 0.3 % (0.0-10.0); %Lymphocytes 6.4 % (21.0-51.0); %Monocytes 7.5 % (0.0-10.0); %Neutrophils 85.3 % (42.0-75.0); Hemoglobin 9.9 g/dL (14.0-18.0); Mean Corpuscular HGB CONC 30.6 g/dL (32.0-36.0); Mean Corpuscular Hemoglobin 28.2 pg (27.0-31.0); Mean Corpuscular Volume 92.1 fL (78.0-98.0); Mean Platelet Volume 6.4 fL (7.4-10.4); Platelet Count 855 thou/uL (130-400); RBC Distribution Width 16.5 % (11.5-14.5); Red Blood Cell (RBC) Count 3.49 mill/uL (4.70-6.10); White Blood Cell (WBC) Count 11.9 thou/uL (4.8-10.8)
[2018-06-02] MEDS: HYDROmorphone 10 mg/100 ml CADD IV PRN ×2 (05:56→18:56)
[2018-06-02 05:58] LABS: ALT (SGPT) 270 U/L (8-55); AST (SGOT) 379 U/L (5-34); Albumin 1.8 g/dL (3.4-4.8); Alkaline Phosphatase 1046 U/L (40-150); Anion Gap 17 mmol/L (10-20); BUN (Urea Nitrogen) 37 mg/dL (8.4-25.7); Bilirubin, Total 0.9 mg/dL (0.2-1.2); Calc. Creatinine Clearance 31 mL/min (70-130); Calcium 7.3 mg/dL (7.8-10.44); Carbon Dioxide 19 mmol/L (23-31); Chloride 94 mmol/L (98-107); Estimated GFR-MDRD 28; Globulin 3.6 g/dL (2.4-3.5); Glucose 117 mg/dL (80-115); Potassium 6.5 mmol/L (3.5-5.1); Protein, Total 5.4 g/dL (5.8-8.1); Sodium 123 mmol/L (136-145)
[2018-06-02] MEDS ORDERED: Levothyroxine Sodium 50 MCG TAB PO SCH (06:00)
[2018-06-02] MEDS: Nicotine 21 MG PATCH TOP SCH (09:30)
[2018-06-02] MEDS: Vancomycin HCl 1 GM in Premix Bag 1 BAG IVPB SCH (09:31)
[2018-06-02] MEDS: Norepinephrine 8 MG/250 ML BAG IVPB PRN ×2 (09:31→20:31)
[2018-06-02] MEDS ORDERED: Heparin 1,000 UNITS/ML VIAL ONE (11:11)
--- NOTE | 2018-06-02 13:06 | PRG ---
DATE OF SERVICE: 06/02/2018 SUBJECTIVE: A 62-year-old gentleman, being seen for end-stage kidney disease. The patient is under palliative care. The patient's potassium was 6.5 this morning and has abdominal distention and pain. OBJECTIVE: CONSTITUTIONAL: The patient is awake and alert, in no acute distress. VITAL SIGNS: Afebrile, pulse 100, breathing 16, blood pressure 113/72. GENERAL APPEARANCE AND MENTAL STATUS: Fair. HEAD/NECK: Normocephalic. Atraumatic. EYES: EOMI. No deformity. EARS: Clear. No ulcers. NOSE: Intact. No lesions. MOUTH: Clear. No discharge. THROAT: Clear. No exudate. LUNGS: Clear. No crackles. CARDIAC: S1, S2. No rub. ABDOMEN: Benign. Bowel sounds positive. GENITALIA/RECTUM: Bruce absent. BACK/EXTREMITIES: Edema 0+. NEUROLOGICAL: Alert and motor intact. SKIN: LYMPHATICS: LABORATORY DATA: Labs showed hemoglobin 9.9, potassium 6.5, creatinine 2.3. ASSESSMENT AND PLAN: 1. Stage 6 chronic kidney disease with hyperkalemia, but overall prognosis is poor. Risks versus benefits of dialysis were discussed. We will plan dialysis for hyperkalemia just as palliative measure. We will stop dialysis today. 2. Hyperkalemia, plan dialysis. 3. Metastatic cancer. Prognosis is very poor. I will sign off on this patient. Please reconsult as needed. Job ID: [id number]
[2018-06-02] MEDS: Albumin 25% 25 GM/100 ML BOT IVPB SCH ×2 (17:44→23:09)
--- NOTE | 2018-06-02 17:49 | PRG ---
DATE OF SERVICE: 06/02/2018 SUBJECTIVE: I met with Mr. Carmen and his sister today. He continues to want to multiple times a day drain his ascites. I have explained to him that every time he drains this, he replaces this with intravascular volume, which aggravates his renal failure and aggravates his hyperkalemia. On top of that, he is draining bloody fluid, although we still do not have pathology on his fluid that was sent to the lab yesterday. OBJECTIVE: His exam is essentially unchanged. LUNGS: Clear. HEART: Regular rhythm. ABDOMEN: Remarkable for ascites with a massive liver. LABORATORY DATA: Sodium 123, potassium 6.5, chloride 94, bicarb 19, BUN 37, creatinine 2.35. White count 11.9, hemoglobin 9.9, platelets 855. IMPRESSION: 1. Advanced hepatocellular carcinoma, preterminal. 2. Ascites secondary to cirrhosis and advanced hepatocellular carcinoma. 3. Peritonitis secondary to frequent use of his peritoneal drain at home with no sterile technique. 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 He is growing gram-negative rods out of his peritoneal fluid. 4. There are no therapeutic options for him as I have explained to his sister and the patient. Dialysis plays no role in this situation given that he is at the end of this fatal illness. There is no need to continue with vancomycin given that he has gram negatives in his peritoneal fluid. 5. It is reasonable to continue with Zosyn, although the dosing needs to be adjusted down for his renal function. 6. Hospice is being consulted. He is stable to go to inpatient hospice or go home with hospice, whichever he prefers. He could be switched to an oral antibiotic if sensitivity showed that what he has is sensitive to oral antibiotics, although it is not going to change the outcome, that he can survive this and likely will not survive for many more days. Sister has a good understanding of this and her to relay this to family. 7. He will continue with inpatient pain control for now. He is on a Dilaudid drip plus he has a fentanyl patch on. Unfortunately continues on Levophed. 8. Salt poor albumin may facilitate weaning off Levophed. If his Levophed dose is decreased, it should not be increased or if it is weaned to 0, it should not be restarted in my opinion. Job ID: [id number]
[2018-06-02] MEDS ORDERED: Lorazepam 0.5 MG TAB PO PRN (18:08)
[2018-06-02] MEDS: Morphine IR 10 MG/5 ML UDCUP PO PRN (21:01)
[2018-06-03] MEDS: Piperacillin/Tazobactam 3.375 GM in Sodium Chloride 0.9% 100 ML IVPB SCH ×2 (02:55→08:49)
[2018-06-03 05:10] LABS: #Lymphocytes 0.8 thou/uL (1.20-3.40); #Monocytes 0.8 thou/uL (0.11-0.59); #Neutrophils 10.7 thou/uL (1.40-6.50); %Basophils 0.2 % (0.0-1.0); %Eosinophils 0.3 % (0.0-10.0); %Lymphocytes 6.8 % (21.0-51.0); %Monocytes 6.6 % (0.0-10.0); %Neutrophils 86.1 % (42.0-75.0); Hemoglobin 8.6 g/dL (14.0-18.0); Mean Corpuscular HGB CONC 30.6 g/dL (32.0-36.0); Mean Corpuscular Hemoglobin 28.2 pg (27.0-31.0); Mean Corpuscular Volume 92.2 fL (78.0-98.0); Mean Platelet Volume 6.5 fL (7.4-10.4); Platelet Count 593 thou/uL (130-400); RBC Distribution Width 16.2 % (11.5-14.5); Red Blood Cell (RBC) Count 3.06 mill/uL (4.70-6.10); White Blood Cell (WBC) Count 12.4 thou/uL (4.8-10.8)
[2018-06-03 05:22] LABS: Anion Gap 18 mmol/L (10-20); BUN (Urea Nitrogen) 28 mg/dL (8.4-25.7); Calc. Creatinine Clearance 31 mL/min (70-130); Calcium 7.4 mg/dL (7.8-10.44); Carbon Dioxide 20 mmol/L (23-31); Chloride 94 mmol/L (98-107); Estimated GFR-MDRD 28; Glucose 98 mg/dL (80-115); Potassium 5.6 mmol/L (3.5-5.1); Sodium 126 mmol/L (136-145)
[2018-06-03] MEDS: Albumin 25% 25 GM/100 ML BOT IVPB SCH ×3 (05:41→18:24)
[2018-06-03] MEDS: HYDROmorphone 10 mg/100 ml CADD IV PRN ×2 (06:45→18:24)
[2018-06-03] MEDS: Nicotine 21 MG PATCH TOP SCH (08:49)
[2018-06-03] MEDS: Piperacillin/Tazobactam 2.25 GM in Sodium Chloride 0.9% 100 ML IVPB SCH ×2 (15:01→21:05)
[2018-06-03] MEDS ORDERED: Ondansetron ODT 8 MG TAB PO PRN (17:01)
[2018-06-03] MEDS ORDERED: Ondansetron ODT 8 MG TAB PO SCH (17:15)
[2018-06-03] MEDS ORDERED: Furosemide 40 MG TAB PO SCH (17:15)
--- NOTE | 2018-06-03 19:15 | PRG ---
DATE OF SERVICE: 06/03/2018 SUBJECTIVE: Christopher Carmen had no new complaints. His abdomen was a little more distended than yesterday, because he is not draining every few hours. OBJECTIVE: VITAL SIGNS: He is afebrile. Heart rate is in 80s, respiratory rate is in the teens, oximetry is 92% on room air, and blood pressure is in the 80s to high 90s. He is off Levophed. LUNGS: Clear. HEART: Regular rhythm. ABDOMEN: Tender, but not as tender as it was 1 days ago. The gram-negative jamal in his peritoneal fluid still has been identified. IMPRESSION: 1. Advanced hepatocellular carcinoma. 2. Reactive thrombocytosis. 3. Peritonitis secondary to indwelling catheter. 4. End of life issues. PLAN: He is now do not resuscitate, the patient willing to be evaluated by Hospice. We will transfer out of the critical care unit. We will sign off when we transfers out of the critical care unit. Job ID: [id number]
[2018-06-04] MEDS: Piperacillin/Tazobactam 2.25 GM in Sodium Chloride 0.9% 100 ML IVPB SCH ×3 (05:33→22:31)
[2018-06-04] MEDS ORDERED: fentaNYL 100 mcg/hour Patch TD SCH (08:00)
[2018-06-04] MEDS: Megestrol Acetate 800 MG/20 ML UDCUP PO SCH ×2 (08:51→22:30)
[2018-06-04] MEDS: Furosemide 40 MG TAB PO SCH (08:51)
[2018-06-04] MEDS: Nicotine 21 MG PATCH TOP SCH (09:43)
[2018-06-04] MEDS: HYDROmorphone 10 mg/100 ml CADD IV PRN (17:46)
[2018-06-05] MEDS: Piperacillin/Tazobactam 2.25 GM in Sodium Chloride 0.9% 100 ML IVPB SCH ×3 (05:43→22:08)
[2018-06-05] MEDS: Megestrol Acetate 800 MG/20 ML UDCUP PO SCH ×2 (08:16→20:23)
[2018-06-05] MEDS: Furosemide 40 MG TAB PO SCH (08:17)
[2018-06-05] MEDS: Nicotine 21 MG PATCH TOP SCH (08:17)
[2018-06-05] MEDS: HYDROmorphone 10 mg/100 ml CADD IV PRN (17:22)
[2018-06-06] MEDS: Piperacillin/Tazobactam 2.25 GM in Sodium Chloride 0.9% 100 ML IVPB SCH ×3 (05:09→20:41)
[2018-06-06 05:11] VITALS: BMI 20.9
[2018-06-06] MEDS: Megestrol Acetate 800 MG/20 ML UDCUP PO SCH ×2 (09:00→20:46)
[2018-06-06] MEDS: Furosemide 40 MG TAB PO SCH (09:00)
[2018-06-06] MEDS: Nicotine 21 MG PATCH TOP SCH (09:00)
[2018-06-06 20:40] VITALS: BP 97/67; TEMP 97.5
--- NOTE | 2018-06-07 10:50 | DIS ---
DATE OF ADMISSION: 06/01/2018 DATE OF DISCHARGE: 06/06/2018 CHIEF COMPLAINT ON ADMISSION: Abdominal pain. History and physical had previously been dictated, I will resume from there. HOSPITAL COURSE: The patient's treatments began in the ER when Dr. Washington arrived and arranged for dialysis on an urgent basis. Symptomatic drainage of his ascites was maintained. Cultures were taken. Serial evaluation and pain management were provided and he went to a surgical bed for further care. Dr. Washington saw the patient in consultation as did Dr. Sarmiento. By 06/02, he has had some improvement in his pain. He is upset about his prognosis. His blood pressure is running very low. His Sodium was running at 123. His abdominal tenderness had improved somewhat. On exam, his peritonitis had improved. A long explanation with his sister about his poor prognosis and the need to consider a DNR status occurred. By 06/03, he wanted food. His pain control was adequate. Abdomen is still tense and tender. His peritonitis had been initiated by his self-diuresis. We continued him on Zosyn and pain management. He was considered an inpatient hospice person so that they were called in to answer questions about terminal care. By 06/04/2018, he was more alert, complaining of breakthrough pain, abdomen is still distended, but less tender. His prognosis remains poor still. We increased his pain management and consulted hospice on the day. By 06/05, he had removed 1 to 1-1/2 vacuum bottles of peritoneal fluid. He felt much better. His pain control was improved. We waited to arrange final coverage for the last month of his life. By 06/06/2018, he was more alert. No complaints. Adequate pain control , and states he is ready to go and live with his sister with what time he has left. He will self-diurese himself as he had before to obtain pain relief. He will be going to an inpatient hospice facility should it does not work out with his sister. DISCHARGE DIAGNOSES: Metastatic hepatocellular carcinoma with malignant ascites , peritonitis secondary to self diuresis, cirrhosis with ascites, renal insufficiency, chronic obstructive pulmonary disease, and thrombocytosis. The time required to review the chart and examine the patient, answer his and sister's questions completely, and then return to the chart, preparing discharge summary reconciliation of all his medication and any discharge prescriptions came to 35 minutes. He is discharged in very poor condition with a very poor prognosis. There is not a plan to follow up with Dr[place] Dr. Rowe will see him as needed. Job ID: [id number] [facility]
--- NOTE | 2018-06-21 14:01 | EKG ---
Test Reason : Blood Pressure : / mmHG Vent. Rate : 091 BPM Atrial Rate : 091 BPM P-R Int : 202 ms QRS Dur : 090 ms QT Int : 346 ms P-R-T Axes : 061 -23 074 degrees QTc Int : 425 ms Normal sinus rhythm Normal ECG Confirmed by CELESTINO OLIVIA ([id number]), rewrite editor VIOLETA AVENDAÑO ([id number] on 06/21/2018 2:00:38 PM Referred By: Confirmed By:CELESTINO OLIVIA
== END 2018-06-06 21:55 | disposition hospice, inpatient (51) | DRG 919 ==
LOC: ERS 03:45 → CCU 06:52 → SURG A 06-03 11:44
PROVIDERS: ADMIT Specialist; ATTEND Specialist
PROC: 3E033XZ Introduction of Vasopressor into Peripheral Vein, Percutaneous Approach (ICD-10-PCS; principal; 2018-06-01)
PROC: 06HM33Z Insertion of Infusion Device into Right Femoral Vein, Percutaneous Approach (ICD-10-PCS; 2018-06-01)
PROC: 5A1D70Z Performance of Urinary Filtration, Intermittent, Less than 6 Hours Per Day (ICD-10-PCS; 2018-06-01)
PROC: 0W9G3ZZ Drainage of Peritoneal Cavity, Percutaneous Approach (ICD-10-PCS; 2018-06-01)
DX: T85.79XA Infection and inflammatory reaction due to other internal prosthetic devices, implants and grafts, initial encounter (principal); K65.9 Peritonitis, unspecified; A41.9 Sepsis, unspecified organism; N18.6 End stage renal disease; C22.0 Liver cell carcinoma; E87.2 Acidosis; N17.9 Acute kidney failure, unspecified; C79.9 Secondary malignant neoplasm of unspecified site; R18.0 Malignant ascites; Z51.5 Encounter for palliative care; Z66 Do not resuscitate; G89.29 Other chronic pain; M47.9 Spondylosis, unspecified; E87.5 Hyperkalemia; B19.20 Unspecified viral hepatitis C without hepatic coma; D69.59 Other secondary thrombocytopenia; J44.9 Chronic obstructive pulmonary disease, unspecified; F10.10 Alcohol abuse, uncomplicated; F17.210 Nicotine dependence, cigarettes, uncomplicated; E03.9 Hypothyroidism, unspecified; Z79.891 Long term (current) use of opiate analgesic; Y83.1 Surgical operation with implant of artificial internal device as the cause of abnormal reaction of the patient, or of later complication, without mention of misadventure at the time of the procedure
CPT/HCPCS: 36415; 36556; 49082; 80048; 80053; 83605; 85025; 85060; 86706; 87040; 87070; 87076; 87205; 87340; 88112; 88305; 89051; 90935; 93005; 96361; 96365; 96374; C1752; G0257; J1644; J2270; J2543; J3010; J3370; J7050; P9047